=== PATIENT | male | born 1935 | race Caucasian/White ===

== ENCOUNTER 2018-07-30 08:19 | Day surgery (SDC) | payer OTHER, MEDICARE ==
[2018-07-30] MEDS ORDERED: LIDOCAINE 2% MPF 5 ML VIAL ONE ×2 (10:53→11:37)
[2018-07-30] MEDS ORDERED: TETRACAINE HCL 0.5% 2ML OPTH ONE (10:54)
[2018-07-30] MEDS ORDERED: NA CHLORIDE 0.9% 500 ML ONE (10:54)
[2018-07-30] MEDS ORDERED: BUPIVACAINE 0.25% PF 10 ML VIAL ONE (10:54)
[2018-07-30] MEDS ORDERED: NS 0.9% VIAL 10 ML ONE (11:06)
[2018-07-30] MEDS: CYCLOPENTOLATE 1% OPTH 2 ML ONE ×3 (11:15→11:25)
[2018-07-30] MEDS ORDERED: PHENYLEPHRINE 10% OPTH 5ML ONE (11:35)
[2018-07-30] MEDS ORDERED: PROPOFOL 200 MG/20 ML VIAL IV ONE (11:37)
[2018-07-30] MEDS: BALANCED SALT IRRIG PLAIN 500 ML BTL IRR ONE ×2 (12:01→12:06)
[2018-07-30] MEDS: EPINEPHRINE/PF 1 MG/ML AMP ONE ×2 (12:02→12:06)
[2018-07-30] MEDS: DUOVISC 1 KIT OPTH ONE ×2 (12:02→12:14)
[2018-07-30] MEDS: MOXIFLOXACIN HCL 10 DROPS/ML **OR USE OPTH ONE ×2 (12:14→12:30)
--- NOTE | 2018-07-30 12:38 | P.BOP ---
Preoperative diagnosis: Nuclear sclerotic cataract and regular astigmatism OD Postoperative diagnosis: Same Primary procedure: Phacoemulsification with Toric IOL OD Estimated blood loss: None Anesthesia: Local (Subtenon's infusion with anesthesia for cataract surgery) Complications: None Implants: [id number] +20.5 @ 173 Transferred to: Other (Day surgery) Condition: Good
[2018-07-30 13:27] VITALS: BP 157/88; TEMP 98.4; O2SAT 96
--- NOTE | 2018-07-30 22:16 | OP ---
Surgeon: Laura Scott MD Anesthesiologist: Anita Vasquez CRNA and Akash Alfaro MD. Preoperative Diagnoses: Nuclear sclerotic cataract and regular astigmatism, right eye. Operation Performed: Phacoemulsification with toric intraocular lens implant, right eye. Anesthesia: Per cataract surgery. Complications: None. Description Of Procedure: In day surgery, the patient was prepped with Betadine and draped. A conju nctival incision was made in the inferior nasal quadrant with Ele scissors. A sub-Tenon block c onsisting of a 1:1 mixture of 2% Xylocaine and 0.25% bupivacaine was placed through the conjunctival incision with a blunt cannula. A Honan balloon was placed over the eye and the patient was transferr ed to the operating room. In the operating room the patient was prepped and draped in the usual sterile fashion for ophthalmic surgery. A lid speculum was placed in the right eye. Two paracentesis sites were made superiorly an d inferiorly in the limbal cornea. Viscoat was placed in the anterior chamber and a crescent blade w as used to make a corneal groove and tunnel, and a keratome was used to enter the anterior chamber. Provisc was placed in the anterior chamber and a 360 degree capsulotomy was performed with a cystitom e. The lens was hydrodissected with BSS and rotated freely. The lens was removed with a stop and ch op technique. 15.27 phaco CDE was used to remove the lens. Residual cortex was removed with the irr igation and aspiration. Provisc was placed in the capsular bag. A JNH169 +20.5 at [address] was [address] ed in the capsular bag without complications. Irrigation and aspiration was used to remove residual viscoelastic. The paracentesis sites were hydrated with BSS. The wound and paracentesis sites were inspected and found to be watertight. Vigamox 0.07 cc was placed intracamerally at the end of the pr ocedure. The eye was irrigated with balanced salt solution. The eye was patched with a soft cotton patch and York metal shield. The patient was returned to day surgery in good condition. Comments: Discharge Instructions: Mr. Velasquez is discharged to home in good condition. He is to follow up with Dr. Scott today at 3 and in the morning. ANDREA/NICHOL Voice ID: [id number] Report ID: [id number]
== END 2018-07-30 13:13 | disposition home or self-care (01) ==
LOC: OR 08:19
PROVIDERS: ATTEND Ophthalmology Retina Specialist
PROC: 08RJ3JZ Replacement of Right Lens with Synthetic Substitute, Percutaneous Approach (ICD-10-PCS; principal; 2018-07-30 10:45)
DX: H25.11 Age-related nuclear cataract, right eye (principal); H52.221 Regular astigmatism, right eye; H40.10X0 Unspecified open-angle glaucoma, stage unspecified; I10 Essential (primary) hypertension; I25.10 Atherosclerotic heart disease of native coronary artery without angina pectoris; E78.5 Hyperlipidemia, unspecified; I25.2 Old myocardial infarction; Z79.82 Long term (current) use of aspirin; Z88.0 Allergy status to penicillin; Z85.51 Personal history of malignant neoplasm of bladder; Z85.038 Personal history of other malignant neoplasm of large intestine; Z95.5 Presence of coronary angioplasty implant and graft
CPT/HCPCS: 66984; J0171; J2704; V2787

== ENCOUNTER 2022-11-04 20:42 | Inpatient (IN) | payer OTHER, MEDICARE ==
--- OUTSIDE RECORDS SUMMARY | 2022-11-04 20:45 | XMS REPORT | Continuity of Care Document ---
:1935 Author Organization [facility] t Address [address] [place] [address] [place] [id number] Care Team Providers Name Role Phone Singer CALVOSourav Attending Clinician Payers Payer Name Policy Type Policy Number Effective Date Expiration Date S ource Problems This patient has no known problems. Allergies, Adverse Reactions, Alerts Allergy Allergy Status Severity Reaction(s) Onset Inactive Treating Comm ents Source Name Type Date Date Clinician Penicill Propensi Active Rash Univer s ins ty to 01-30 ity of adverse 00:00: [place] reaction 00 Medical Branch PENICILL Drug Active Rash Univers INS Class 7-24 ity of 00:00: [place] 00 [facility] [place] Social History Social Habit Start Date Stop Date Quantity Comments Source Exposure to Not sure [facility] SARS-CoV-2 (event) Medica l Branch Sex Assigned At [birth year] [facility] 00:00:00 00:00:00 [facility] [place] Smoking Status Start Date Stop Date Source Unknown if ever smoked [facility] Medications This patient has no known medications. Vital Signs Vital Name Observation Time Observation Value Comments Source Systolic blood 2021-01-30 21:00:00 114 mm[Hg] [facility] Diastolic blood 2021-01-30 21:00:00 74 mm[Hg] Unive rsity [facility] [place] [facility] Heart rate 2021-01-30 21:00:00 63 /min [facility] Respiratory rate 2021-01-30 21:00:00 17 /min [facility] Oxygen saturation in 2021-01-30 21:00:00 97 /min [facility] Arterial blood by [facility] Pulse oximetry Branch Body temperature 2021-01-30 19:13:00 36.61 Diana [facility] Body weight 2021-01-30 19:13:00 73.483 kg Universi [facility] Procedures Procedure Date / Time Performed Performing Clinician Cosme e TROPONIN I 2021-01-30 20:02:00 Singer [facility] o [facility] [place] BASIC METABOLIC PANEL 2021-01-30 20:02:00 Sourav Daigle [facility] (NA, K, CL, CO2, [facility] Branch GLUCOSE, BUN, CREATININE, CA) CBC WITHOUT DIFF 2021-01-30 20:02:00 Singer [facility] COVID-19 (ID NOW 2021-01-30 20:02:00 Daigle, [facility] RAPID TESTING) [facility] NOTICE OF PRIVACY 2021-01-30 19:09:01 Doctor Unassigned, No [facility] PRACTICES Name [facility] CONSENT/REFUSAL FOR 2021-01-30 19:03:10 Doctor Unassigned, No [facility] DIAGNOSIS AND Name [facility] TREATMENT Encounters Start End Encounter Admission Attending Care Care Encounter Source Date/Time Date/Time Type Type Clinicians Facility Department ID 2021-01-30 2021-01-30 [facility] [id number] Univers 14:15:00 16:13:00 Sourav [place] [id number] [facility] [id number] [facility] [id number] [facility] 084 Branch 2021-01-30 2021-01-30 Emergency X [facility] ERT [id number] Univers 14:03:00 14:03:00 [facility] Results Test Description Test Time Test Comments Results Result Comments Source TROPONIN I 2021-01-30 20:40:16 Test Item Value Reference Range Interpretation Comme nts TROPONIN I (test code = 0.007 ng/mL See_Comment [Au tomated message] The [id number]) system which ge nerated this result tra nsmitted reference range : <=0.034. The reference r flakito was not used to int erpret this result as normal/abnormal . PER (test code = PER) Reference (Normal) Range (defined by the 99th percentile reference limit): <= 0.034 ng/mL Note: Cardiac troponin begins to rise 3-4 hours after the onset of ischemia. Repeat in 4-6 hours if the sample was drawn within 3-4 hours of the onset of the symptom and found normal. Diagnosis of myocardial injury is made with acute changes in cTn concentrations with at least one serial sample above the 99th percentile upper reference limit (URL), taken together with the patient's clinical presentation. Biotin has been reported to cause a negative bias, interpret results relative to patient's use of biotin. Lab Interpretation Normal (test code = 61402-1) [facility]2021-01-30 20:29:56 Test Item Value Reference Range Interpretation Comments SARS-CoV-2 Rapid ID NOW Not Detected Not Detected (test code = 12132-6) PER (test code = PER) ID NOW COVID-19 Assay is an isothermal nucleic acid amplification test intended for the qualitative detection of nucleic acid from SARS-CoV-2 viral RNA in nasopharyngeal (LAB ASST) specimens. It is used under Emergency Use Authorization (EUA) by FDA. The limit of detection (LOD) of the assay is 125 Genome Equivalents/mL. A positive result is indicative of the presence of SARS-CoV-2 RNA. ?Clinical correlation with patient history and other diagnostic information is necessary to determine patient infection status. A negative (Not Detected) result does not preclude SARS-CoV-2 infection. In patients with clinical symptoms and other tests that are consistent with SARS-CoV-2 infection, negative results should be treated as presumptive negative and a new specimen should be tested with alternative PCR molecular test. Invalid: Please collect a new specimen for repeat patient testing if clinically indicated. Lab Interpretation Normal (test code = 20139-2) [facility] (NA, K, CL, CO2, GLUCOSE, BUN, CREATININE, CA)2021-01-30 20:28:14 Test Item Value Reference Range Interpretation Comments NA (test code = 135 mmol/L 135-145 3937036120) K (test code = 5.1 mmol/L 3.5-5.0 H 5773416137) CL (test code = 106 mmol/L 98-108 6259731965) CO2 TOTAL (test code = 24 mmol/L 23-31 1424076339) AGAP (test code = 2-16 8037815402) BUN (test code = 25 mg/dL 7-23 H 5038855124) GLUCOSE (test code = 98 mg/dL 70-110 1712080354) CREATININE (test code = 1.11 mg/dL 0.60-1.25 6263584059) CALCIUM (test code = 9.1 mg/dL 8.6-10.6 5596056992) eGFR (test code = mL/min/1.73m2 0070839221) PER (test code = PER) Association of Glomerular Filtration Rate (GFR) and Staging of Kidney Disease* + --+ --+ ------+| GFR (mL/min/1.73 m2) ?| With Kidney Damage ?| ?Without Kidney Damage+ --------+ --------+ +| ?>90 ?| ?Stage one ?| ? Normal ?+ ---+ ---+ -------+| ?60-89 ?| ?Stage two ?| ? Decreased GFR ? + --+ --+ ------+| ?30-59 ?| ?Stage three ?| ? Stage three ? + --+ --+ ------+| ?15-29 ?| ?Stage four ? | ? Stage four ?+ ---+ ---+ -------+| ?<15 (or dialysis) ? ?| ?Stage five ? | ? Stage five ?+ ---+ ---+ -------+ *Each stage assumes the associated GFR level has been in effect for at least three months. ?Stages 1 to 5, with or without kidney disease, indicate chronic kidney disease. Notes: Determination of stages one and two (with eGFR >59mL/min/1.73 m2) requires estimation of kidney damage for at least three months as defined by structural or functional abnormalities of the kidney, manifested by either:Pathological abnormalities or Markers of kidney damage (including abnormalities in the composition of the blood or urine or abnormalities in imaging tests). Lab Interpretation Abnormal (test code = 13685-3) [facility] [id number] 20:14:57 Test Item Value Reference Range Interpretation Comments WBC (test code = 6690-2) See_Comment [A utomated message] The system [employer] generated this result transmit eugenia reference range : 4.20 - 10.70 10*3/?L. The reference range was not used to interpret this result as normal/abnormal . RBC (test code = 789-8) See_Comment L [Au tomated message] The system [employer] generated this result transmit eugenia reference range : 4.26 - 5.52 10* 6/?L. The reference r flakito was not used to interpret this result as normal/abnormal . HGB (test code = 718-7) 12.8 g/dL 12.2-16.4 HCT (test code = 4544-3) 38.7 % 38.4-49.3 MCH (test code = 785-6) 31.5 pg 26.1-32.7 MCV (test code = 787-2) 95.3 fL 81.7-95.6 MCHC (test code = 786-4) 33.1 g/dL 31.2-35.0 PLT (test code = 777-3) See_Comment [Au tomated message] The system [employer] generated this result transmit eugenia reference range : 150 - 328 10*3/?L. The reference range was not used to interpret this result as normal/abnormal . MPV (test code = 9.5 fL 9.8-13.0 L 13658-6) RDW-CV (test code = 13.2 % 12.1-15.4 788-0) RDW-SD (test code = 45.9 fL 38.5-51.6 49187-1) NRBC x10^3 (test code = <0.01 See_Comment [Au tomated message] [id number]) The system [employer] generated this result transmit eugenia reference range : 10*3/?L. The reference range was not used to interpret this result as normal/abnormal . NRBC/100 WBC (test code See_Comment [Au tomated message] = [id number]) The system [facility] generated this result transmit eugenia reference range : 0.0 - 10.0 /100 WBC s. The reference r flakito was not used to interpret this result as normal/abnormal . IPF % (test code = 5073901807) Lab Interpretation (test Abnormal code = 74237-0) [facility]"
[2022-11-04 21:30] LABS: Protime INR 1.13
[2022-11-04 21:42] LABS: Absolute Lymphocytes (CBC) 0.4 K/uL (0.7-4.9); Bilirubin Total 0.9 mg/dL (0.2-1.0); Hematocrit 36.2 % (39.6-49.0); Lymphocytes % 3.4 % (15.3-44.8); MPV 6.6 fL (7.6-11.3); Potassium 3.8 mEq/L (3.5-5.1); Protein, Total 7.6 g/dL (6.4-8.2); RBC Red Blood Cell Count 3.98 M/uL (4.33-5.43)
[2022-11-04] MEDS ORDERED: METOCLOPRAMIDE 10 MG/2mL INJ ONE (21:56)
[2022-11-04] MEDS ORDERED: IBUPROFEN 400 MG TAB ONE (21:57)
[2022-11-04] MEDS ORDERED: ONDANSETRON 4 MG/2 ML VIAL ONE (21:57)
[2022-11-04] MEDS ORDERED: VANCOMYCIN 1 GM/VIAL ONE (21:57)
[2022-11-04] MEDS ORDERED: ACETAMINOPHEN 500 MG TAB ONE (21:57)
[2022-11-04] MEDS ORDERED: PIPERACIL/TAZO 3.375 GM VIAL IV ONE (21:58)
[2022-11-04] MEDS ORDERED: NA CHLORIDE 0.9% 2,000 ML ONE (21:58)
[2022-11-04] MEDS ORDERED: NA CHLORIDE 0.9% 100 ML ONE (21:58)
[2022-11-04] MEDS ORDERED: NA CHLORIDE 0.9% 250 ML ONE (21:58)
[2022-11-04 22:02] LABS: Specific Gravity 1.012 (1.005-1.030); Urine Bacteria 20-50 /HPF (<20); Urine Bilirubin NEGATIVE (Negative); Urine Blood 2+ (Negative); Urine Clarity Turbid (Clear); Urine Color Light-Yellow (Yellow); Urine Glucose NEGATIVE (Negative); Urine Mucus 1+ /HPF (None Seen); Urine Protein TRACE (Negative); Urine RBC 21-50 /HPF (None Seen); Urine Urobilinogen Normal (Normal); Urine WBC Clump Occasional /HPF (None Seen)
[2022-11-04 22:09] LABS: White Blood Cell Scan OK (OK)
[2022-11-04 22:10] LABS: Blood Morphology Comment NOT SEEN (NOT SEEN); Platelet Estimate ADEQ
--- NOTE | 2022-11-04 22:37 | RAD REPORT ---
EXAM DESCRIPTION: CT - Head Brain Wo Cont - 11/04/2022 10:23 pm CLINICAL HISTORY: Alteration of awareness/confusion COMPARISON: None TECHNIQUE: Computed axial tomography of the head was obtained. IV contrast was not requested. All CT scans are performed using dose optimization technique as appropriate and may include automated exposure control or mA/KV adjustment according to patient size. FINDINGS: An intracranial bleed is not seen The ventricles are normal in caliber No extra-axial fluid collection is noted. Mild low-density areas within periventricular, deep and subcortical white matter likely represent isc hemic changes secondary to small vessel disease. Linear calcifications are present within the cerebrum bilaterally. Linear calcification is seen withi n the right cerebellum. Basal ganglia calcifications are benign Fluid within the sinuses/ mastoids is not seen. IMPRESSION: Linear calcifications within the brain bilaterally may be related to a metabolic disturb ance such as hypothyroidism. No acute intracranial abnormality seen If patient's symptoms persist MRI of the brain would be recommended
--- NOTE | 2022-11-04 22:44 | RAD REPORT ---
EXAM DESCRIPTION: CT - Chest Abd Pelvis Wo Con - 11/04/2022 10:23 pm CLINICAL HISTORY: Chest and abdominal pain COMPARISON: 2012 TECHNIQUE: Computed axial tomography of the chest, abdomen and pelvis was obtained. Oral contrast wa s given. IV contrast was not requested. All CT scans are performed using dose optimization technique as appropriate and may include automated exposure control or mA/KV adjustment according to patient size. FINDINGS: The evaluation of mediastinum, juanita, vessels and solid organs is limited secondary to the lack of IV contrast administration The lungs are clear No mediastinal or hilar lymphadenopathy is seen. A pleural effusion is not present. A pericardial effusion is not seen. The liver, spleen, pancreas, adrenals appear grossly normal. Bilateral renal cysts. Right colectomy. Moderate amount of stool within the left colon Vera catheter within the bladder. Mild bladder wall thickening. Prostate gland mildly enlarged Right inguinal hernia repair There is no evidence of diverticulitis. IMPRESSION: Mild bladder wall thickening may be secondary to post treatment change, inflammation or chronic outlet obstruction. Moderate amount of stool within the left colon
--- NOTE | 2022-11-04 23:17 | EDPHYS ---
Physician Documentation [facility] Name: Marvin Velasquez Age: 87 yrs Sex: Male : 1935 Arrival Date: 11/04/2022 Time: 20:42 Bed 20 Private MD: ED Physician Truong Pickard HPI: 11/04 21:02 This 87 yrs old Male presents to ER via EMS with complaints of fever, sp4 lethargy. 21:02 87-year-old male presents with EMS for acute onset of fever and lethargy of unknown sp4 duration.. 22:56 EMS reports that patient was found on his couch by his family lethargic and confused. sp4 Patient has history of myocardial infarction with occlusion of LAD and history of LAD stent also history of coronary artery disease hyperlipidemia, and glaucoma.. On arrival patient appears confused and febrile, general diffuse physical deconditioning, not able to provide any history or review of systems.. 22:56 Family states that patient was seeing a heart off last time at 4 PM and was normal but sp4 then patient had disappeared and family had to break down the door in his house to find him in a position curled up on his couch feverish. Patient was reportedly at the store today and was feeling unwell. Patient reported to the family that he has had frequent urination throughout the day. No additional history available. Historical: - Allergies: 21:01 No Known Allergies; ha1 - Home Meds: 21:01 atorvastatin oral [Active]; Metoprolol Tartrate Oral [Active]; losartan oral [Active]; ha1 - PMHx: 21:01 Myocardial infarction; ha1 - Immunization history:: Adult Immunizations up to date. - Social history:: Smoking status: Patient denies any tobacco usage or history of. - Family history:: not pertinent. ROS: 22:56 Constitutional: Negative for chills, and weight loss, positive for fever, frequent sp4 urination, lethargy, generalized weakness. Patient not able to supply additional review of system 22:56 Unable to obtain ROS due to altered mental status. Exam: 22:37 ECG was reviewed by the Attending Physician. EKG time 2123, EKG reveals sinus sp4 tachycardia at rate of 121, no ST elevations, no ST depressions, no acute ectopy 22:56 Constitutional: This is a well developed, patient who is awake,. Patient is sp4 ill-appearing, toxic-appearing, febrile, but not hypotensive. Diffuse physical deconditioning and cachexia present. Thin appearing male elderly and frail. Incontinent of urine Head/Face: Normocephalic, atraumatic. Eyes: Pupils equal round and reactive to light, extra-ocular motions intact. Lids and lashes normal. Conjunctiva and sclera are not injected. Cornea within normal limits. Periorbital areas with no swelling, redness, or edema. ENT: Nares patent. No nasal discharge, no septal abnormalities noted. Tympanic membranes are normal and external auditory canals are clear. Poor dentition, dry mucous membranes Neck: Trachea midline, no thyromegaly or masses palpated, and no cervical lymphadenopathy. Supple, full range of motion without nuchal rigidity, or vertebral point tenderness. No Meningismus. Chest/axilla: Normal chest wall appearance and motion. Nontender with no deformity. No lesions are appreciated. Cardiovascular: Regular rate and rhythm with a normal S1 and S2. No gallops, murmurs, or rubs. Normal PMI, no JVD. No pulse deficits. Respiratory: Lungs have equal breath sounds bilaterally, clear to auscultation and percussion. No rales, rhonchi or wheezes noted. No increased work of breathing, no retractions or nasal flaring. Abdomen/GI: Soft, non-tender, with normal bowel sounds. No distension or tympany. No guarding or rebound. No evidence of tenderness throughout. Back: No spinal tenderness. No costovertebral tenderness. Male : Normal genitalia with no discharge or lesions. Skin: Warm, dry with normal turgor. Normal color with no rashes, no lesions, and no evidence of cellulitis. MS/ Extremity: Pulses equal, no cyanosis. Neurovascular intact. Full, normal range of motion. Neuro: Awake GCS 13 oriented to person, . Cranial nerves II-XII grossly intact. Motor strength 5/5 in all extremities. Sensory grossly intact. Gen weakness Psych: Awake, with orientation to person. 23:32 Repeat EKG at 2322 reveals normal sinus rhythm at a rate of 97, no ST elevation, early sp4 repolarization changes in leads II, III, aVF, otherwise normal EKG Vital Signs: 20:56 BP 107 / 69; Pulse 128; Resp 20 S; Temp 102.9(O); Pulse Ox 97% on R/A; Weight 63.5 kg; ha1 Height 6 ft. 0 in. ; 22:30 BP 100 / 58; Pulse 101; Resp 14 S; Pulse Ox 100% on R/A; ha1 23:07 Temp 98.1; ha1 23:32 BP 100 / 65; Pulse 94; Resp 18; Pulse Ox 100% on R/A; ha1 11/05 00:22 BP 90 / 56; Pulse 95; Resp 15 S; Pulse Ox 97% on R/A; ha1 00:50 BP 77 / 48; Pulse 88; Resp 18 S; Pulse Ox 99% on R/A; ha1 01:30 BP 97 / 56; Pulse 84; Resp 14 S; Pulse Ox 100% on R/A; ha1 02:30 BP 94 / 51; Pulse 83; Resp 18 S; Pulse Ox 100% on R/A; ha1 03:17 BP 98 / 64; Pulse 81; Resp 15 S; Pulse Ox 99% on R/A; ha1 04:00 BP 103 / 62; Pulse 82; Resp 18 S; Pulse Ox 99% on R/A; ha1 11/04 20:56 Body Mass Index 18.99 (63.50 kg, 182.88 cm) [facility] Procedures: 03:16 Central Line: the site was prepped with in sterile fashion, Hibiclens prep, a triple sp4 lumen catheter was inserted, in the right internal jugular vein, in 1 attempts. placement was verified, by CXR, by blood return, the site was dressed with Tegaderm, using sterile technique, the patient tolerated the procedure, well, Right internal jugular triple-lumen central line was placed with ultrasound guidance for persistent hypotension and septic shock. MDM: 11/04 21:02 Patient medically screened. sp4 22:56 Differential Diagnosis altered mental status, sepsis, flu. Data reviewed: vital signs, sp4 nurses notes, EMS record, old medical records, lab test result(s), amylase and lipase, cardiac enzymes, CBC, electrolytes, Flu: hepatic panel, urinalysis, EKG, radiologic studies, CT scan. Consideration of Admission/Observation Patient was admitted/placed on observation. Escalation of care including admission/observation considered. ED course: 87-year-old male with history of coronary artery disease presents with fever, lethargy, dehydration, signs of sepsis. Patient's blood pressure is stable 100/65 and is normal for his size. Patient appears to have moderate to severe dehydration, incontinence of urine, and physical deconditioning. Blood work revealed neutrophilic leukocytosis, mild hyponatremia sodium 132, AST 14, lactic acid 1.2, urine positive for leukocyte esterase, positive for white blood cells, positive for bacteria, positive for nitrites, indicative of pyelonephritis CT chest abdomen and pelvis revealed urinary bladder wall thickening moderate amount of stool in the colon. CT head revealed no acute intracranial abnormality, calcifications bilateral brain related to hypothyroidism or some other metabolic disturbance. At this time parents warrants admission for management of pyelonephritis with IV Zosyn or some other acceptable antibiotic. Patient has improved in mentation after IV hydration and fever control in ER.. 11/04 21:03 Order name: Blood Culture Adult (2) [facility] 11/04 21:03 Order name: CBC with Diff; Complete Time: 22:37 [facility] 11/04 21:03 Order name: CMP; Complete Time: 00:44 [facility] 11/04 21:03 Order name: Lactate w/ 2H reflex if indic.; Complete Time: 22:37 [facility] 11/04 21:03 Order name: Protime (+inr); Complete Time: 22:37 [facility] 11/04 21:03 Order name: Ptt, Activated; Complete Time: 22:37 [facility] 11/04 21:03 Order name: Urinalysis w/ reflexes; Complete Time: 22:37 [facility] 11/04 22:08 Order name: Urine Culture [facility] 11/04 22:10 Order name: CBC Smear Scan; Complete Time: 22:37 [facility] 11/05 00:08 Order name: SARS-COV-2 RT PCR; Complete Time: 02:01 [facility] 11/05 00:09 Order name: Influenza Screen (A ; Complete Time: 02:01 [facility] 11/05 00:13 Order name: Thyroid Stimulating Hormone; Complete Time: 00:44 [facility] 11/04 21:08 Order name: CT Chest Abdomen Pelvis W/O Contrast; Complete Time: 22:53 [facility] 11/04 21:08 Order name: CT Head Brain wo Cont; Complete Time: 22:53 [facility] 11/05 02:17 Order name: CXR XRAY 11/04 21:03 Order name: EKG; Complete Time: 21:04 sp4 11/04 21:03 Order name: Accucheck; Complete Time: 22:13 sp4 11/04 21:03 Order name: Cardiac monitoring; Complete Time: 21:08 sp4 11/04 21:03 Order name: Cath; Complete Time: 21:46 sp4 11/04 21:03 Order name: EKG - Nurse/Tech; Complete Time: 21:46 4 11/04 21:03 Order name: IV Saline Lock - Large Bore; Complete Time: 21:18 sp4 11/04 21:03 Order name: Labs collected and sent; Complete Time: 21:18 sp4 11/04 21:03 Order name: O2 Per Protocol; Complete Time: 21:18 sp4 11/04 21:03 Order name: O2 Sat Monitoring; Complete Time: 21:18 sp4 11/04 21:03 Order name: Vital Signs; Complete Time: 21:18 sp4 11/04 22:38 Order name: EKG - Nurse/Tech; Complete Time: 23:30 sp4 EC:37 Rate is 121 beats/min. Rhythm is regular. QRS [place] is Normal. [place] interval is normal. sp4 QRS interval is normal. T waves are Normal. No ST changes noted. Clinical impression: No evidence of ischemia. Interpreted by me. Administered Medications: 21:35 Drug: Acetaminophen PO 1000 mg Route: PO; ha1 21:35 Drug: Ibuprofen PO 800 mg Route: PO; ha1 21:35 Drug: NS 0.9% IV (30 ml/kg) 30 ml/kg Route: IV; Rate: bolus; Site: right antecubital; ha1 21:55 Drug: Ondansetron IVP 4 mg Route: IVP; Site: right antecubital; ha1 22:20 Follow up: Response: No adverse reaction ha1 22:00 Drug: metoCLOPramide IVP 10 mg Route: IVP; Site: right antecubital; ha1 22:30 Follow up: Response: No adverse reaction ha1 22:30 Drug: Piperacillin-Tazobactam IVPB 3.375 grams Route: IVPB; Infused Over: 60 mins; ha1 Site: right antecubital; 23:00 Follow up: Response: No adverse reaction; IV Status: Completed infusion; IV Intake: ha1 100ml 23:15 Drug: vancoMYCIN IVPB 1 grams Route: IVPB; Infused Over: 2 hrs; Site: right antecubital;ha1 23:45 Follow up: Response: No adverse reaction; IV Status: Completed infusion; IV Intake: ha1 250ml 11/05 00:55 Drug: NS 0.9% IV 1000 ml Route: IV; Rate: 100 ml/hr; Site: right antecubital; ha1 04:26 Follow up: Response: No adverse reaction; IV Status: Infusion continued; IV Intake: ha1 800ml 00:56 Drug: Albumin IVPB 50 grams Volume: 100 ml; Route: IVPB; Site: right antecubital; ha1 02:10 Follow up: Response: No adverse reaction; IV Status: Completed infusion; IV Intake: ha1 100ml 01:24 Drug: NS 0.9% IV 500 ml Route: IV; Rate: bolus; Site: right antecubital; ha1 04:24 Follow up: Response: No adverse reaction; IV Status: Completed infusion; IV Intake: ha1 500ml Disposition Summary: 11/04/22 23:17 Hospitalization Ordered Hospitalization Status: Inpatient Admission sp4 Provider: Wagner Serrano sp4 Condition: Fair sp4 Problem: new sp4 Symptoms: have improved sp4 Bed/Room Type: Standard sp4 Location: Intensive Care Unit(11/05/22 01:13) cg Room Assignment: 5-(11/05/22 01:13) cg Diagnosis - Pyelonephritis acute sp4 - Acute febrile illness, acute pyelonephritis, acute sepsis sp4 - Severe sepsis with septic shock sp4 Forms: - Medication Reconciliation Form sp4 - SBAR form sp4 Critical care time excluding procedures: 11/04 22:56 Critical care time: Bedside Care: 36 minutes, Consultation: 10 minutes, Family sp4 Intervention: 12 minutes. Total time: 58 minutes Signatures: Dispatcher [employer] Daktoa Clement, PERLA DODDP-Katie Foy RN RN Maria Ines Dexter RN RN ha1 Truong Pickard MD MD sp4 Corrections: (The following items were deleted from the chart) 11/05 00:08 11/04 21:06 COVID-19/FLU A+B+MOL.LAB.BRZ ordered. EDMS ZAINABMS 11/05 00:13 00:01 THYROID STIMULAT HORMONE+C.LAB.MARIANZ ordered. EDMS EDMS 01:11/04 23:17 Telemetry/MedSurg (Inpatient) 4 11/05 01:13 11/04 23:17 sp4 11/05 03:17 11/04 23:17 Severe sepsis without septic shock [facility]
--- NOTE | 2022-11-04 23:17 | ER ---
Nurse's Notes [facility] Name: Marvin Velasquez Age: 87 yrs Sex: Male : 1935 Arrival Date: 11/04/2022 Time: 20:42 Bed 20 Private MD: Diagnosis: Pyelonephritis acute;Acute febrile illness, acute pyelonephritis, acute sepsis;Severe sepsis with septic shock Presentation: 11/04 20:55 Coronavirus screen: Vaccine status: Patient reports receiving the 2nd dose of the covid ha1 vaccine. 20:56 Chief complaint: EMS states: 87 year old male, family called because he has been ha1 complaining of problems with urination, and today they noticed his mental status has changed. he was found sitting in the couch without interest on talking or moving. Ebola Screen: No symptoms or risks identified at this time. Initial Sepsis Screen: Does the patient meet any 2 criteria? Yes Does the patient have a suspected source of infection? No. Patient's initial sepsis screen is negative. Risk Assessment: Do you want to hurt yourself or someone else? Patient reports no desire to harm self or others. Onset of symptoms was November 04, 2022. 20:56 Method Of Arrival: EMS: [facility] ha1 20:56 Acuity: EYAL 3 ha1 Triage Assessment: 20:55 General: Appears ill, Behavior is calm, cooperative. Pain: Denies pain. EENT: No signs ha1 and/or symptoms were reported regarding the EENT system. Neuro: Level of Consciousness is awake, alert, obeys commands, Oriented to person, situation. Cardiovascular: Capillary refill < 3 seconds Patient's skin is warm and dry. Respiratory: Airway is patent Respiratory effort is even, unlabored, Respiratory pattern is regular, symmetrical. GI: No signs and/or symptoms were reported involving the gastrointestinal system. Abdomen is flat, non-distended, Bowel sounds present X 4 quads. : Parent/caregiver report the patient having urinary frequency. Derm: Skin is fragile, Skin is moist, Skin is normal. Musculoskeletal: Circulation, motion, and sensation intact. Range of motion: intact in all extremities. Historical: - Allergies: 21:01 No Known Allergies; ha1 - Home Meds: 21:01 atorvastatin oral [Active]; Metoprolol Tartrate Oral [Active]; losartan oral [Active]; ha1 - PMHx: 21:01 Myocardial infarction; ha1 - Immunization history:: Adult Immunizations up to date. - Social history:: Smoking status: Patient denies any tobacco usage or history of. - Family history:: not pertinent. Screenin:55 [facility] ED Fall Risk Assessment (Adult) History of falling in the last 3 months, ha1 including since admission No falls in past 3 months (0 pts) Confusion or Disorientation Yes (5 pts) Intoxicated or Sedated No (0 pts) Impaired Gait No (0 pts) Mobility Assist Device Used Yes (1 pt) Altered Elimination Yes (1 pt) Score/Fall Risk Level 3 or more points = High Risk Oriented to surroundings, Maintained a safe environment, Educated pt \T\ family on fall prevention, incl call for assistance when getting out of bed, Assessed \T\ reinforced patient's understanding of fall precautions, Hourly rounding (assess needs \T\ fall precautionary measures) done. 21:06 Abuse screen: Denies threats or abuse. Denies injuries from another. Nutritional ha1 screening: No deficits noted. Tuberculosis screening: No symptoms or risk factors identified. Assessment: 20:55 Reassessment: see triage assessment. ha1 21:30 Reassessment: Patient and/or family updated on plan of care and expected duration. Pain ha1 level reassessed. Patient is alert, oriented x 3, equal unlabored respirations, skin warm/dry/pink. 22:30 Reassessment: Patient and/or family updated on plan of care and expected duration. Pain ha1 level reassessed. Patient is alert, oriented x 3, equal unlabored respirations, skin warm/dry/pink. 23:30 Reassessment: Patient and/or family updated on plan of care and expected duration. Pain ha1 level reassessed. family members in the room. 11/05 00:50 Reassessment: notified care provider of low blood pressure. ha1 01:30 Reassessment: Patient and/or family updated on plan of care and expected duration. Pain ha1 level reassessed. Patient is alert, oriented x 3, equal unlabored respirations, skin warm/dry/pink. daughter at bedside. Patient denies pain at this time. 02:30 Reassessment: Patient is alert, oriented x 3, equal unlabored respirations, skin ha1 warm/dry/pink. Nurse practitioner Dakota in the room putting a central line. 03:00 Reassessment: Patient and/or family updated on plan of care and expected duration. Pain ha1 level reassessed. awaiting on X-ray. to verify central line placement. 04:00 Reassessment: Patient and/or family updated on plan of care and expected duration. Pain ha1 level reassessed. Patient is alert, oriented x 3, equal unlabored respirations, skin warm/dry/pink. Vital Signs: 11/04 20:56 BP 107 / 69; Pulse 128; Resp 20 S; Temp 102.9(O); Pulse Ox 97% on R/A; Weight 63.5 kg; ha1 Height 6 ft. 0 in. ; 22:30 BP 100 / 58; Pulse 101; Resp 14 S; Pulse Ox 100% on R/A; ha1 23:07 Temp 98.1; ha1 23:32 BP 100 / 65; Pulse 94; Resp 18; Pulse Ox 100% on R/A; ha1 11/05 00:22 BP 90 / 56; Pulse 95; Resp 15 S; Pulse Ox 97% on R/A; ha1 00:50 BP 77 / 48; Pulse 88; Resp 18 S; Pulse Ox 99% on R/A; ha1 01:30 BP 97 / 56; Pulse 84; Resp 14 S; Pulse Ox 100% on R/A; ha1 02:30 BP 94 / 51; Pulse 83; Resp 18 S; Pulse Ox 100% on R/A; ha1 03:17 BP 98 / 64; Pulse 81; Resp 15 S; Pulse Ox 99% on R/A; ha1 04:00 BP 103 / 62; Pulse 82; Resp 18 S; Pulse Ox 99% on R/A; ha1 11/04 20:56 Body Mass Index 18.99 (63.50 kg, 182.88 cm) ha1 ED Course: 11/04 20:55 Patient arrived in ED. ha1 20:55 Patient has correct armband on for positive identification. Placed in gown. Bed in low ha1 position. Call light in reach. Side rails up X2. Adult w/ patient. 20:56 Maria Ines Dexter RN is Primary Nurse. ha1 21:00 Truong Pickard MD is Attending Physician. sp4 21:01 Triage completed. ha1 21:14 First set of blood cultures drawn by me. mb9 21:18 Ptt, Activated Sent. mb9 21:18 Protime (+inr) Sent. mb9 21:18 CMP Sent. mb9 21:18 CBC with Diff Sent. mb9 21:18 Lactate w/ 2H reflex if indic. Sent. mb9 21:18 Inserted saline lock: 22 gauge in right antecubital area, using aseptic technique. mb9 21:18 Arm band placed on. mb9 21:30 Inserted saline lock: 20 gauge in left forearm, using aseptic technique. mb9 21:32 Second set of blood cultures drawn by me, EKG done, by ED staff, reviewed by Truong Pickard MD. 21:46 Blood Culture Adult (2) Sent. mb9 21:46 Urinalysis w/ reflexes Sent. mb9 21:47 Vera cath inserted, using sterile technique, 16 Fr., by me, balloon inflated, to mb9 gravity drainage, urine specimen collected. returned cloudy urine. Patient tolerated well. 22:13 Blood Culture Adult (2) Sent. ha1 22:25 CT Chest Abdomen Pelvis W/O Contrast In Process Unspecified. EDMS 22:25 CT Head Brain wo Cont In Process Unspecified. EDMS 23:16 Wagner Serrano MD is Hospitalizing Provider. sp4 11/05 04:21 No provider procedures requiring assistance completed. Patient admitted, IV remains in ha1 place. Administered Medications: 11/04 21:35 Drug: Acetaminophen PO 1000 mg Route: PO; ha1 21:35 Drug: Ibuprofen PO 800 mg Route: PO; ha1 21:35 Drug: NS 0.9% IV (30 ml/kg) 30 ml/kg Route: IV; Rate: bolus; Site: right antecubital; ha1 21:55 Drug: Ondansetron IVP 4 mg Route: IVP; Site: right antecubital; ha1 22:20 Follow up: Response: No adverse reaction ha1 22:00 Drug: metoCLOPramide IVP 10 mg Route: IVP; Site: right antecubital; ha1 22:30 Follow up: Response: No adverse reaction ha1 22:30 Drug: Piperacillin-Tazobactam IVPB 3.375 grams Route: IVPB; Infused Over: 60 mins; ha1 Site: right antecubital; 23:00 Follow up: Response: No adverse reaction; IV Status: Completed infusion; IV Intake: ha1 100ml 23:15 Drug: vancoMYCIN IVPB 1 grams Route: IVPB; Infused Over: 2 hrs; Site: right antecubital;ha1 23:45 Follow up: Response: No adverse reaction; IV Status: Completed infusion; IV Intake: ha1 250ml 11/05 00:55 Drug: NS 0.9% IV 1000 ml Route: IV; Rate: 100 ml/hr; Site: right antecubital; ha1 04:26 Follow up: Response: No adverse reaction; IV Status: Infusion continued; IV Intake: ha1 800ml 00:56 Drug: Albumin IVPB 50 grams Volume: 100 ml; Route: IVPB; Site: right antecubital; ha1 02:10 Follow up: Response: No adverse reaction; IV Status: Completed infusion; IV Intake: ha1 100ml 01:24 Drug: NS 0.9% IV 500 ml Route: IV; Rate: bolus; Site: right antecubital; ha1 04:24 Follow up: Response: No adverse reaction; IV Status: Completed infusion; IV Intake: ha1 500ml Medication: 04:22 VIS not applicable for this client. ha1 Intake: 11/04 23:00 IV: 100ml; Total: 100ml. ha1 23:45 IV: 250ml; Total: 350ml. ha1 11/05 02:10 IV: 100ml; Total: 450ml. ha1 04:24 IV: 500ml; Total: 950ml. ha1 04:26 IV: 800ml; Total: 1750ml. ha1 Outcome: 11/04 23:17 Decision to Hospitalize by Provider. sp4 11/05 04:21 Admitted to ICU accompanied by nurse, via stretcher, room 1, on monitor, with chart, ha1 Report called to CHERELLE Orellana Condition: stable 04:30 Patient left the ED. ha1 Signatures: Dispatcher [employer] EDMaria Ines Campo RN RN ha1 Kindra Penaloza RN RN Truong Mar MD MD sp4 Corrections: (The following items were deleted from the chart) 02:10 Response: No adverse reaction; IV Status: Completed infusion; IV Intake: 100ml ha1ha1
[2022-11-05 00:36] LABS: Thyroid Stimulating Hormone 1.33 uIU/mL (0.358-3.740)
[2022-11-05] MEDS ORDERED: ALBUMIN HUMAN 25% 200 ML IV ONE (00:44)
[2022-11-05] MEDS ORDERED: NA CHLORIDE 0.9% 1,000 ML ONE (00:51)
--- NOTE | 2022-11-05 01:20 | P.HP ---
Certification for Inpatient Patient admitted to: Inpatient With expected LOS: >2 Midnights Patient will require the following post-hospital care: None Practitioner: I am a practitioner with admitting privileges, knowledge of patient current condition, hospital course, and medical plan of care. Services: Services provided to patient in accordance with Admission requirements found in Title 42 Section 412.3 of the Code of Federal Regulations <Dakota Lundberg - Last Filed: 11/05/22 01:08> Patient History Date of Service: 11/05/22 Reason for admission: Sepsis, UTI History of Present Illness: 87-year-old male with history of CAD, gout,, colon/bladder cancer in remission presents to the emergency department with lethargy, fever, tachycardia. His family reports that last night he was reporting urinary frequency, today he had an episode of weakness/confusion at the grocery store and after returning home they had not heard from him in a few hours, they went to his house to check on him and found him in the position with decreased responsiveness, EMS was called. Patient presented to the emergency department awake but drowsy tachycardic to 130 with fever. His labs were significant for leukocytosis white blood cell count 13.3 hemoglobin 12.4 hematocrit 36.2 sodium 132 urinalysis 2+ nitrite 2+ blood 2+ ketone positive leuk esterase 20-50 bacteria no squamous greater than [address] chest abdomen pelvis without contrast was performed which revealed mild bladder wall thickening may be secondary to posttreatment change inflammation or chronic outlet obstruction. CT head was also performed which showed linear calcifications within the brain bilaterally may be related to metabolic disturbance such as hypothyroidism, no acute intracranial abnormality. Patient started on broad-spectrum involving vancomycin/Zosyn he received 30 cc/kg IV fluid bolus in the emergency department his initial lactate was 1.2. Will need to be admitted for sepsis, UTI. - Past Medical/Surgical History Diabetic: No -: CAD -: Colon/bladder cancer in remission. -: 2002 resection -: 2005 removal scar tissue -: bladder cancer -: hernia operation with mesh -: heart cath with stent -: basal cell removal Psychosocial/ Personal History: Pt lives at home alone, family lives close and checks on him daily. - Family History Father Notes: in age of 50's Mother -: Heart disease Brother Notes: none - Social History Smoking Status: Never smoker Alcohol use: No CD- Drugs: No Caffeine use: Yes Place of Residence: Home <Dakota Lundberg Siobhan Stout - Last Filed: 11/05/22 01:08> Date of Service: 11/05/22 <Wagner Serrano - Last Filed: 11/05/22 22:37> Allergies Penicillins Allergy (Intermediate, Verified 07/27/18 11:05) Hives/Rash Home Medications: Atorvastatin Calcium [Lipitor*] 40 mg PO BEDTIME #30 tab 12/06/14 Brimonidine Tartrate/Timolol [Combigan 0.2%-0.5% Eye Drops] 1 gtt EACH EYE BID 0 07/27/18 Guaifenesin [Mucinex] 600 mg PO BID PRN 07/27/18 Latanoprost [Xalatan] 1 gtt EACH EYE BEDTIME 07/27/18 Losartan Potassium [Cozaar*] 25 mg PO [id number] 07/27/18 Metoprolol Succinate [Toprol Xl*] 25 mg PO [id number] 07/27/18 Vit A/Vit C/Vit E/Zinc/Copper [Icaps Areds Formula Dr Tablet] 1 each PO BID 07/27/18 Review of Systems 10-point ROS is otherwise unremarkable General: Fever, Chills, Weakness, Malaise Genitourinary: Frequency <ToñoDakota Stout - Last Filed: 11/05/22 01:08> Physical Examination - Physical Exam General: Alert, In no apparent distress, Oriented x3 HEENT: Atraumatic, PERRLA, Mucous membr. moist/pink, EOMI, Sclerae nonicteric Neck: Supple, 2+ carotid pulse no bruit, No LAD, Without JVD or thyroid abnormality Respiratory: Clear to auscultation bilaterally, Normal air movement Cardiovascular: Regular rate/rhythm, Normal S1 S2 Capillary refill: <2 Seconds Gastrointestinal: Normal bowel sounds, No tenderness Musculoskeletal: No tenderness Integumentary: No rashes Neurological: Normal speech, Normal strength at 5/5 x4 extr, Normal tone, Normal affect - Studies Laboratory Data (last 24 hrs) 11/04/22 21:14: PT 12.4, INR 1.13, APTT 25.3 11/04/22 21:14: Sodium 132 L, Potassium 3.8, BUN 18, Creatinine 1.25, Glucose 99, Total Bilirubin 0.9, AST 14 L, ALT 16, Alkaline Phosphatase 63 11/04/22 21:14: WBC 13.30 H, Hgb 12.4 L, Hct 36.2 L, Plt Count 249 Microbiology Data (last 24 hrs): 11/04/22 23:45 Nasopharnyx Influenza Type A Antigen Screen - Final 11/04/22 23:45 Nasopharnyx Influenza Type B Antigen Screen - Final <Dakota Lundberg - Last Filed: 11/05/22 01:08> - Studies Laboratory Data (last 24 hrs) 11/04/22 21:14: Sodium 132 L, Potassium 3.8, BUN 18, Creatinine 1.25, Glucose 99, Total Bilirubin 0.9, AST 14 L, ALT 16, Alkaline Phosphatase 63 Microbiology Data (last 24 hrs): 11/04/22 23:45 Nasopharnyx Influenza Type A Antigen Screen - Final 11/04/22 23:45 Nasopharnyx Influenza Type B Antigen Screen - Final <Wagner Serrano - Last Filed: 11/05/22 22:37> Assessment and Plan - Plan Assessment: Septic shock secondary to UTI Metabolic encephalopathy secondary to sepsis-improving HX of CAD Glaucoma Hx of Colon/Bladder CA Plan: Septic shock secondary to UTI SIRS criteria present including fever, leukocytosis, tachycardia. Source of infection present urinary tract infection. He has now had 2 blood pressures less than 90 systolic qualifying for septic shock. He has received 30 cc/kg IV fluid bolus, he is currently receiving additional IV fluid bolus and may require central line/vasopressors. Patient will be admitted to the ICU. Metabolic encephalopathy secondary to sepsis-improving Patient now oriented x4, improving after IV fluids, his fever breaking. HX of CAD Glaucoma Hx of Colon/Bladder CA DVT PPX:Lovenox Code status:Full Discharge Plan: Home Plan to discharge in: 72 Hours - Advance Directives Does patient have a Living Will: Yes Does patient have a Durable POA for Healthcare: Yes - Code Status/Comfort Care Code Status Assessed: Yes (Full code) Critical Care: No Time Spent Managing Pts Care (In Minutes): 70 <Dakota Lundberg - Last Filed: 11/05/22 01:08> - Plan Patient seen an examined on rounds this morning. ~3 minutes after levophed discontinued, patient's HR increased to 170-190, BP climbed up to 200s/110s, with rigors. he reported feeling very cold. no fever given 500ml bolus and warming blanket placed. Shortly after, patient's rigors improved, HR improved to 130s sinus tachycardia, BP improved to 120s-130s/70s. Unclear etiology of event. Nursing staff checked IV and no inadvertent levophed bolus given per their report. Penicillin allergy noted; however patient tolerated Zosyn in ED. Received cefepime ~1.5-2hr prior to event <Wagner Serrano - Last Filed: 11/05/22 22:37>
[2022-11-05] MEDS ORDERED: NA CHLORIDE 0.9% 500 ML ONE (01:27)
[2022-11-05] MEDS ORDERED: VANCOMYCIN 1 GM in NA CHLORIDE 0.9% 250 ML IVPB SCH (01:44)
--- NOTE | 2022-11-05 02:24 | P.PN ---
Date of Service: 11/05/22 Sepsis reassessment complete, meets criteria for septic shock, not requiring vasopressors yet but Central line in place. Will admit to ICU
[2022-11-05] MEDS: NA CHLORIDE 0.9% 1,000 ML IV SCH ×3 (04:19→18:22)
[2022-11-05] MEDS ORDERED: NOREPINEPHRINE 4 MG in D5W 250 ML IV SCH (06:00)
[2022-11-05] MEDS: ENOXAPARIN 40 MG/0.4 ML SQ SCH (07:55)
[2022-11-05] MEDS: CEFEPIME 1 GM in NA CHLORIDE 0.9% 100 ML IV SCH ×2 (07:56→20:20)
[2022-11-05] MEDS ORDERED: NA CHLORIDE 0.9% 500 ML IV ONE (11:10)
[2022-11-05] MEDS: ONDANSETRON 4 MG/2 ML VIAL IV PRN (11:28)
[2022-11-05 11:52] LABS: Absolute Lymphocytes (CBC) 0.3 K/uL (0.7-4.9); Lymphocytes % 3.8 % (15.3-44.8); MCV 92.7 fL (80-100); MPV 6.3 fL (7.6-11.3); RBC Red Blood Cell Count 3.35 M/uL (4.33-5.43)
[2022-11-05 12:08] LABS: Albumin 2.7 g/dL (3.4-5.0); Bilirubin Total 0.7 mg/dL (0.2-1.0); Magnesium 1.6 mg/dL (1.6-2.4); Phosphorus 2.3 mg/dL (2.5-4.9); Potassium 3.8 mEq/L (3.5-5.1); Protein, Total 5.9 g/dL (6.4-8.2)
[2022-11-05] MEDS ORDERED: Magnesium Sulfate 2gm IVPB 2 G/50 ML BAG IV ONE (12:28)
[2022-11-05 12:40] LABS: Blood Morphology Comment NOT SEEN (NOT SEEN); Platelet Estimate ADEQ
--- NOTE | 2022-11-05 15:18 | EKG ---
Test Date: 2022-11-04 Test Time: 21:23:30 Hair Spring Cutter: MB MEASUREMENT RESULTS: Intervals: Rate: 121 AK: 144 QRSD: 82 QT: 368 QTc: 522 [place]: P: AK: 144 QRS: 75 T: 83 INTERPRETIVE STATEMENTS: Sinus tachycardia Otherwise normal ECG Compared to ECG 12/05/2014 10:31:55 Sinus rhythm no longer present Myocardial infarct finding no longer present ST (T wave) deviation no longer present Possible ischemia no longer present Electronically Signed On 11-05-22 15:17:08 CDT by Rubio Tom
--- NOTE | 2022-11-05 18:52 | CON ---
Date of Consultation: 11/05/2022 Reason For Consultation: Congestive heart failure management and tachycardia. History Of Present Illness: 87-year-old male, very poor historian. Most part of his information of this consult is from the ER documents and the hospital documents. He has history of coronary artery disease and colon and bladder cancer in remission, who presented to the emergency room, very lethargi c, altered mental status, fever and tachycardia. Family reported that the patient has been having si gnificant urinary frequency and dysuria as well as fever and altered mental status. In the ER, he wa s hypotensive and tachycardic, so I was called initially by the ER physician telling me that this coy heaton is seen here with the CHF and he was hypotensive and tachycardic. I recommended at that time phoenix aburto to be transferred due to the concern of cardiogenic shock. However, apparently the patient was septic and after proper management of sepsis, patient has stabilized by bedside now, and his heart r ate is in the low 100 and 105. Has no chest pain. No shortness of breath. No orthopnea. Past Medical History: Coronary artery disease. Colon cancer. Questionable history of congestive he art failure. Bladder cancer. Medications: Refer to reconciliation sheet for detailed list. Allergies: PENICILLIN. Family History: No premature coronary artery disease or cancer. Social History: Does not smoke or drink. Does not use any drugs. Review of Systems: All systems reviewed and they were negative except for mentioned in the HPI. Physical Examination: Vital Signs: Reviewed. Head and Neck: Pupils are equal and reactive to light. Intact eye movements. No JVD. No cervical lymphadenopathy. Neck is supple. Thyroid is not enlarged. Lungs: Rhonchi bilaterally. No accessory muscle use or muscle retraction. Heart: Regular rate and rhythm. No extra sounds. Abdomen: Soft, nontender. Bowel sounds positive. No organomegaly. No masses or hernia. No rigidit y or rebound. Extremities: No edema, clubbing, or cyanosis. Intact pulses. Skin: No rash. Neurologic: Alert, awake, oriented x3. No acute focal deficits appreciated. Investigations: BUN 18, creatinine 1.1. Hemoglobin is 10.4 8.2, down from 13.3. The uri nalysis showed more than 50 white blood cells. Assessment And Recommendations: 1.Tachycardia. This is sinus tachycardia, which is appropriate for the sepsis condition that he is in. Patient is possibly septic from urinary tract infection. Recommendations will be proper managem ent of sepsis with IV antibiotics and he might need IV hydration as well. To be done gently until an echo is done. I am not sure of his ejection fraction. There is no recent echo in the system. Last echo was done in 2014. At that time, he had moderately depressed left ventricle function 35% to 40% . 2.Sepsis and septic shock. He required pressors overnight. He is off pressors now, on proper antib iotics. I will monitor the patient with you. Please obtain an echocardiogram when feasible. /NICHOL Voice ID: [id number] Report ID: [id number]
[2022-11-06 05:15] LABS: Hematocrit 26.3 % (39.6-49.0); Lymphocytes % 8.7 % (15.3-44.8); MCV 92.3 fL (80-100); RBC Red Blood Cell Count 2.84 M/uL (4.33-5.43)
[2022-11-06 05:25] LABS: Albumin 2.2 g/dL (3.4-5.0); Bilirubin Total 0.5 mg/dL (0.2-1.0); Potassium 3.5 mEq/L (3.5-5.1)
[2022-11-06] MEDS: NA CHLORIDE 0.9% 1,000 ML IV SCH ×5 (06:02→22:32)
[2022-11-06] MEDS ORDERED: KCL 20 MEQ/100 mL IVPB 20 MEQ/100 ML BAG IV SCH (07:00)
--- NOTE | 2022-11-06 07:32 | P.PN ---
Date of Service: 11/06/22 Subjective: looking and feeling much better this morning off levo since ~5 am today claims hes been more constipated since his fall ~2months ago increase frequency of urination over last few weeks; no steady stream ROS: 10 point ROS as noted above, otherwise negative Physical Exam: GEN: Alert, oriented, NAD HEENT: Normal conjunctiva, sclera anicteric CV: Regular rate and rhythm, no edema Pulm: Nonlabored respirations on room air, diminished at bases b/l ABD: Soft, nontender, nondistended Neuro: Normal speech, normal affect, moves all extremities, generalized weakness Vera in place vitals reviewed Problem List: Septic shock secondary to UTI Metabolic encephalopathy secondary to sepsis-improving Hx of Colon/Bladder CA HX of CAD Glaucoma Constipation Septic shock secondary to UTI required levophed two different times 11/05: ~3 minutes after levophed discontinued 11/05 AM, patient's HR increased to 170-190, BP climbed up to 200s/110s, with rigors. he reported feeling very cold. no fever given 500ml bolus and warming blanket placed. Shortly after, patient's rigors improved, HR improved to 130s sinus tachycardia, BP improved to 120s-130s/70s. Unclear etiology of event Penicillin allergy noted; however patient tolerated Zosyn in ED. Received cefepime ~1.5-2hr prior to event. tolerating antibiotics GNR bacteremia continue empiric antibiotics Vera placed in ED and removed for unclear reason, placed in ICU for strict I/O's given septic shock and required pressors Blood culture: GNR Urine culture: 100,000 CFU/ML, +4GNR Continue Cefepime (11/05) Added Vanc 11/06 Cardiology consulted - pt with tachycardia, suspect due to sepsis; improved Chest CT 11/04 - Mild bladder wall thickening; Moderate amount of stool within the left colon Head CT 11/04 - Linear calcifications within the brain bilaterally may be related to a metabolic disturbance such as hypothyroidism CXR 11/05 - No evidence of acute intrathoracic disease Echo pending Metabolic encephalopathy secondary to sepsis-improving Patient now oriented x4, improving after IVF afebrile Hx of Colon/Bladder CA reportedly in remission; s/p BCG therapy patient states has been many years since last saw urologist HX of CAD Glaucoma Constipation VTE: Lovenox Code: Full Dispo: Home 2+ days Continue ICU level of care
[2022-11-06] MEDS: CEFEPIME 1 GM in NA CHLORIDE 0.9% 100 ML IV SCH ×2 (07:57→20:21)
[2022-11-06] MEDS: ENOXAPARIN 40 MG/0.4 ML SQ SCH (07:58)
[2022-11-06] MEDS ORDERED: VANCOMYCIN 1.25 GM in NA CHLORIDE 0.9% 250 ML IVPB SCH ×2 (10:00→12:00)
--- NOTE | 2022-11-06 12:20 | RAD REPORT ---
EXAM DESCRIPTION: RAD - Chest Single View - 11/05/2022 2:51 am CLINICAL HISTORY: 87 years Male, line placement COMPARISON: CT chest report from 11/04/2022. The images were unavailable for review. TECHNIQUE: Single portable x-ray view of the chest performed on 11/05/2022 at 2:48 AM FINDINGS: The lungs are well expanded and are clear. There is no evidence of a pneumothorax. The cardiac silhouette is normal in size and configuration. The mediastinal contours are normal. No acute osseous abnormality is identified. No acute soft tissue abnormalities are seen. Lines and tubes: The right IJ central venous catheter tip terminates in the region of the superior vena cava. Free air: None IMPRESSION: No evidence of acute intrathoracic disease. The tip of the right IJ central venous nevaeh ter terminates in the region of the superior vena cava. Electronically signed by: Laura Worley DO 11/05/2022 3:27 AM CDT Due to temporary technical issues with the PACS/Fluency reporting system, reports are being signed by the in house radiologists without review as a courtesy to insure prompt reporting. The interpreting radiologist is fully responsible for the content of the report.
--- NOTE | 2022-11-06 13:32 | RAD REPORT ---
EXAM DESCRIPTION: RAD - Chest Single View - 11/06/2022 1:26 pm CLINICAL HISTORY: Pneumonia? COMPARISON: Chest Single View dated 11/05/2022; CHEST SINGLE VIEW dated 12/05/2014; CHEST PA AND LAT 2 VIEW dated 07/16/2012; CHEST PA AND LAT 2 VIEW dated 07/21/2011 FINDINGS: Lines: Right IJ approach catheter with tip overlying the SVC. Lungs: No evidence of edema or pneumonia. Pleural: No significant pleural effusions or pneumothorax. Cardiac: The heart size is within normal limits. Mediastinum: Within normal limits. Bones: No acute fractures. Other: None IMPRESSION: No acute cardiopulmonary disease.
[2022-11-06 16:25] LABS: Hematocrit 25.4 % (39.6-49.0); MCV 90.9 fL (80-100); MPV 6.7 fL (7.6-11.3)
[2022-11-07 06:12] LABS: Absolute Lymphocytes (CBC) 0.7 K/uL (0.7-4.9); Hematocrit 24.6 % (39.6-49.0); Lymphocytes % 9.9 % (15.3-44.8); MPV 7.2 fL (7.6-11.3); RBC Red Blood Cell Count 2.68 M/uL (4.33-5.43)
[2022-11-07 06:31] LABS: Albumin 1.9 g/dL (3.4-5.0); Bilirubin Total 0.4 mg/dL (0.2-1.0); Ferritin 289.6 ng/mL (26-388); Potassium 3.7 mEq/L (3.5-5.1); Protein, Total 4.6 g/dL (6.4-8.2)
--- NOTE | 2022-11-07 06:58 | P.PN ---
Date of Service: 11/07/22 Subjective: Feels much better this morning remains off levo no nausea / vomiting / diarrhea only complaint is that hes very cold ROS: 10 point ROS as noted above, otherwise negative Physical Exam: GEN: Alert, oriented, NAD HEENT: Normal conjunctiva, sclera anicteric CV: Regular rate and rhythm, no edema Pulm: Nonlabored respirations on 3L NC, diminished at bases b/l ABD: Soft, nontender, nondistended Neuro: Normal speech, normal affect, moves all extremities, generalized weakness Vera in place vitals reviewed Problem List: Septic shock secondary to UTI (E. coli bacteremia) Metabolic encephalopathy secondary to sepsis-resolved Hx of Colon/Bladder CA HX of CAD Glaucoma Constipation Septic shock secondary to UTI (E. coli bacteremia) required levophed two different times - last on 11/06 ~5am 11/05: ~3 minutes after levophed discontinued 11/05 AM, patient's HR increased to 170-190, BP climbed up to 200s/110s, with rigors. he reported feeling very cold. no fever given 500ml bolus and warming blanket placed. Shortly after, patient's rigors improved, HR improved to 130s sinus tachycardia, BP improved to 120s-130s/70s. Unclear etiology of event Penicillin allergy noted; however patient tolerated Zosyn in ED. Received cefepime ~1.5-2hr prior to event. tolerating antibiotics Vera placed in ED and removed for unclear reason, placed in ICU for strict I/O's given septic shock and required pressors Blood culture: E. Coli Urine culture: E. Coli Continue Cefepime (11/05), DC Vanc ID consulted Cardiology consulted - pt with tachycardia, suspect due to sepsis; improved Chest CT 11/04 - Mild bladder wall thickening; Moderate amount of stool within the left colon Head CT 11/04 - Linear calcifications within the brain bilaterally may be related to a metabolic disturbance such as hypothyroidism CXR 11/05 - No evidence of acute intrathoracic disease Repeat CXR 11/07 pending Echo pending Metabolic encephalopathy secondary to sepsis-improving Patient now oriented x4, improving after IVF afebrile Hx of Colon/Bladder CA reportedly in remission; s/p BCG therapy patient states has been many years since last saw urologist 2 months of constipation/decreased sensation fell ~2 months ago, since then, does not feel when he needs to have BM once stable, consider further imaging neuro consulted HX of CAD Glaucoma Constipation VTE: Lovenox Code: Full Dispo: Home 2+ days Possible downgrade from ICU today
[2022-11-07] MEDS: CEFEPIME 1 GM in NA CHLORIDE 0.9% 100 ML IV SCH (07:20)
[2022-11-07] MEDS: ENOXAPARIN 40 MG/0.4 ML SQ SCH (07:20)
[2022-11-07] MEDS: NA CHLORIDE 0.9% 1,000 ML IV SCH ×2 (09:19→22:28)
[2022-11-07] MEDS ORDERED: POTASSIUM CL SA 10 MEQ TAB PO ONE (09:30)
[2022-11-07] MEDS ORDERED: VANCOMYCIN 1.25 GM in NA CHLORIDE 0.9% 250 ML IVPB SCH (10:00)
--- NOTE | 2022-11-07 12:15 | P.CNS ---
Date of Consult: 11/07/22 Reason for Consult: E.coli Bacteremia Chief Complaint: Sepsis, UTI History of Present Illness: Patient is an 87 yo male with a history of CAD, colon and bladder cancer, and gout who presented to the ED with complaints of fever, lethargy and urinary frequency. Patient was brought in by his family members after finding him with decreased responsiveness at his home. Upon arrival, he was found to be tachycardic HR 120+, hypotensive, febrile with a temp of 102.9 F and was subsequently admitted to the ICU and started on levophed drip. UA positive, patient was started on Cefepime. Urine culture positive for E.coli and blood cultures revealing E.coli bacteremia, ID was consulted. Patient is seen in the ICU, awake and oriented x3, not in distress. Family members at bedside. Allergies Penicillins Allergy (Intermediate, Verified 07/27/18 11:05) Hives/Rash Home medications list reviewed: Yes Home Medications: Atorvastatin Calcium [Lipitor*] 40 mg PO BEDTIME #30 tab 12/06/14 Brimonidine Tartrate/Timolol [Combigan 0.2%-0.5% Eye Drops] 1 gtt EACH EYE BID 07/27/18 Latanoprost [Xalatan] 1 gtt EACH EYE BEDTIME 07/27/18 - Past Medical/Surgical History Diabetic: No -: CAD -: Colon/bladder cancer in remission. -: Gout -: HTN -: HDL -: 2002 resection -: 2005 removal scar tissue -: bladder cancer -: hernia operation with mesh -: heart cath with stent -: basal cell removal Psychosocial/ Personal History: Pt lives at home alone, family lives close and checks on him daily. - Family History Father Notes: in age of 50's Mother Medical History: Heart disease Brother Notes: none - Social History Alcohol use: No CD- Drugs: No Caffeine use: Yes Place of Residence: Home Review of Systems 10-point ROS is otherwise unremarkable General: Weakness Respiratory: Other (pain on deep inspiration middle chest) Gastrointestinal: Constipation Physical Examination Temp Pulse Resp BP Pulse Ox 97.8 F 72 14 93/49 L 92 11/07/22 08:00 11/07/22 11:00 11/07/22 09:00 11/07/22 11:00 11/07/22 11:00 General: Alert, In no apparent distress, Oriented x3 HEENT: Atraumatic, Normocephalic Neck: Supple, JVD not distended Respiratory: Crackles/rales (R>L) Cardiovascular: No edema, Normal pulses Gastrointestinal: Normal bowel sounds, Soft and benign, Non-distended Musculoskeletal: No clubbing, No swelling Integumentary: No rashes, No breakdown Neurological: Normal tone, Normal affect Laboratory Data - Reviewed Microbiology Data - Reviewed Imagings Data: - Reviewed Conclusions/Impression: Problem List - Sepsis - Bacteremia, E.coli - UTI, E.coli - CAD - Gout - Hx Colon cancer - Hx Bladder cancer * Allergy: Penicillins* Bacteremia secondary to UTI, E.coli - Urine culture 11/04: Escherichia coli - Blood culture 11/04: Escherichia coli - Leukocytosis improved - Afebrile - Previously on Cefepime (11/05-11/07) Aspiration Pneumonia - XR Chest 11/07: "New patchy airspace opacities in the right lung and left base, could reflect pneumonia, less likely early pulmonary edema." - Patient reports sharp pain on deep inhale midline lower chest - Episode of emesis x1 reported 2 days ago. - Patient on 2-3L NC, Desaturates to around 80-85% off O2. He does not use oxygen at home. Denies cough. - Crackles at lung bases R>L. Cefepime switched to Rocephin and Flagyl (11/07) Recommendations - Continue Rocephin and Flagyl for now - Continue supportive care and nutritional support as needed - Monitor WBC and fever trends ID will follow up and monitor patient closely Case discussed with Whitley Bob
[2022-11-07] MEDS: CEFTRIAXONE 2,000 MG in NA CHLORIDE 0.9% 100 ML IV SCH (12:27)
[2022-11-07] MEDS: METRONIDAZOLE 500mg IVPB 500 MG/100 ML BAG IV SCH ×2 (12:27→19:47)
--- NOTE | 2022-11-07 12:42 | EKG ---
Test Date: 2022-11-05 Test Time: 18:10:24 Obstetrics And Gynecology Professor: MG MEASUREMENT RESULTS: Intervals: Rate: 86 OH: 214 QRSD: 76 QT: 354 QTc: 423 [place]: P: 87 OH: 214 QRS: 86 T: 97 INTERPRETIVE STATEMENTS: Sinus rhythm with 1st degree AV block Nonspecific T wave abnormality Abnormal ECG Electronically Signed On 11-07-22 12:37:28 CDT by Eder Chatterjee
--- NOTE | 2022-11-07 12:43 | EKG ---
Test Date: 2022-11-04 Test Time: 23:22:46 Pre Billing Clinician: MB MEASUREMENT RESULTS: Intervals: Rate: 97 PA: 216 QRSD: 78 QT: 370 QTc: 469 [place]: P: 99 PA: 216 QRS: 76 T: 85 INTERPRETIVE STATEMENTS: Sinus rhythm with 1st degree AV block with premature atrial complexes Anterior infarct, age undetermined Abnormal ECG Compared to ECG 11/04/2022 21:23:30 Atrial premature complex(es) now present First degree AV block now present Myocardial infarct finding now present Sinus tachycardia no longer present Electronically Signed On 11-07-22 12:37:41 CDT by Eder Chatterjee
--- NOTE | 2022-11-07 13:23 | RAD REPORT ---
EXAM DESCRIPTION: RADChest Single View11/07/2022 1:15 pm CLINICAL HISTORY: Chest pain with deep breathing COMPARISON: Chest Single View dated 11/06/2022; Chest Single View dated 11/05/2022; CHEST SINGLE VIEW dated 12/05/2014; CHEST PA AND LAT 2 VIEW dated 07/16/2012 TECHNIQUE: Portable AP view of the chest. FINDINGS: Right IJ CVC in place, with catheter tip projecting along the proximal SVC. New patchy air space opacities throughout the right lung most pronounced at the base. Possible small right effusion. Minimal patchy left basilar opacities. No pneumothorax or left-sided effusion. The cardiomediastinal contours are unremarkable. IMPRESSION: New patchy airspace opacities in the right lung and left base, could reflect pneumonia, less likely early pulmonary edema. Right IJ CVC has been retracted its tip now projecting along the proximal SVC.
[2022-11-07] MEDS ORDERED: NOREPINEPHRINE BITARTRATE/D5W 4 MG/250 ML BAG IV SCH (14:15)
[2022-11-07] MEDS ORDERED: Meropenem 1,000 MG in NA CHLORIDE 0.9% 100 ML IV SCH (17:00)
--- NOTE | 2022-11-07 19:22 | PN ---
Admitted to Dr. Serrano with sepsis, UTI, acute on chronic systolic congestive heart failure with an EF of 40% in 2015, supraventricular tachycardia. He was seen by Dr. Tom. Patient now is in sinus r hythm. Mental status has improved on antibiotics. He is still on Lovenox, Levophed has been stopped . He is being hydrated gently. Echocardiogram is pending. We will continue his present regimen. W e will make further decision depending on the ejection fraction. Continue to follow. KT/NICHOL Voice ID: [id number] Report ID: [id number]
[2022-11-07] MEDS: DOCUSATE NA 100 MG CAP PO PRN (20:25)
[2022-11-07] MEDS: Mupirocin NASAL 2 APPL/1 GM TUBE NAS SCH (20:25)
[2022-11-08] MEDS: METRONIDAZOLE 500mg IVPB 500 MG/100 ML BAG IV SCH ×3 (03:44→20:54)
[2022-11-08 06:38] VITALS: BMI 19.5
[2022-11-08 07:11] LABS: Absolute Lymphocytes (CBC) 0.8 K/uL (0.7-4.9); Hematocrit 26.3 % (39.6-49.0); Lymphocytes % 11.3 % (15.3-44.8); MCV 90.5 fL (80-100); MPV 6.9 fL (7.6-11.3); RBC Red Blood Cell Count 2.91 M/uL (4.33-5.43)
[2022-11-08 07:29] LABS: Albumin 2.1 g/dL (3.4-5.0); Bilirubin Total 0.5 mg/dL (0.2-1.0); Potassium 3.6 mEq/L (3.5-5.1)
[2022-11-08] MEDS: CEFTRIAXONE 2,000 MG in NA CHLORIDE 0.9% 100 ML IV SCH (08:13)
[2022-11-08] MEDS: ENOXAPARIN 40 MG/0.4 ML SQ SCH (08:13)
[2022-11-08] MEDS: NA CHLORIDE 0.9% 1,000 ML IV SCH ×2 (08:13→20:54)
[2022-11-08] MEDS: Mupirocin NASAL 2 APPL/1 GM TUBE NAS SCH ×2 (08:14→20:54)
[2022-11-08] MEDS ORDERED: POTASSIUM CL SA 10 MEQ TAB PO ONE (09:00)
--- NOTE | 2022-11-08 10:17 | ECHO ---
HEIGHT: 6 ft 0 in WEIGHT: 144 lb 1.6 oz DATE OF STUDY: 11/07/[address]: Wagner Serrano MD 2-DIMENSIONAL: YES M.MODE: YES DOPPLER: YES COLOR FLOW: YES TDS: NO PORTABLE: YES DEFINITY: NO BUBBLE STUDY: NO DIAGNOSIS: EVALUATE FUNCTION, HISTORY OF EF 35% CARDIAC HISTORY: CATHERIZATION:YES SURGERY: NO PROSTHETIC VALVE: NO PACEMAKER: NO MEASUREMENTS (cm) DIASTOLIC (NORMALS) SYSTOLIC (NORMALS) IVSd 1.0 (0.6-1.2) LA Diam 2.9 (1.9-4.0) LVEF 38% LVIDd 4.8 (3.5-5.7) LVIDs 3.9 (2.0-3.5) %FS 18% LVPWd 1.2 (0.6-1.2) Ao Diam 2.7 (2.0-3.7) 2 DIMENSIONAL ASSESSMENT: RIGHT ATRIUM: NORMAL LEFT ATRIUM: NORMAL RIGHT VENTRICLE: NORMAL LEFT VENTRICLE: NORMAL SIZE TRICUSPID VALVE: NORMAL MITRAL VALVE: MITRAL ANNULAR CALCIFICATION PULMONIC VALVE: NORMAL AORTIC VALVE: SCLEROSIS PERICARDIAL EFFUSION: NONE AORTIC ROOT: NORMAL LEFT VENTRICULAR WALL MOTION: MODERATE GLOBAL HYPOKINESIS. DOPPLER/COLOR FLOW: MILD MITRAL AND TRICUSPID REGURGITATION. COMMENTS: 1. NORMAL RIGHT VENTRICULAR SYSTOLIC PRESSURE. 2. MILD MITRAL AND TRICUSPID REGURGITATION. 3. MODERATE GLOBAL HYPOKINESIS. 4. LEFT VENTRICULAR EJECTION FRACTION 38%. 5. MITRAL ANNULAR CALCIFICATION. 6. AORTIC SCLEROSIS. TECHNOLOGIST: Jamil CREWS
--- NOTE | 2022-11-08 10:35 | RAD REPORT ---
EXAM DESCRIPTION: RAD - Chest Single View - 11/08/2022 10:14 am CLINICAL HISTORY: Device placement PICC line placement IMPRESSION: PICC line with its tip in the distal superior vena cava
--- NOTE | 2022-11-08 11:42 | P.PN ---
Date of Service: 11/08/22 Chief Complaint: Sepsis, UTI Subjective: No new changes. Improving. Patient in bed, alert and oriented x3. No new complaints. No acute events reported overnight. Afebrile. Daughter at bedside. Physical Examination Temp Pulse Resp BP Pulse Ox 98.9 F 71 18 136/67 96 11/08/22 08:00 11/08/22 08:00 11/08/22 08:00 11/08/22 08:00 11/08/22 08:00 General: Alert, In no apparent distress, Oriented x3 HEENT: Atraumatic, Normocephalic Neck: Supple, JVD not distended Respiratory: Diminished right lung base Cardiovascular: No edema, Normal pulses Gastrointestinal: Normal bowel sounds, Soft and benign, Non-distended Musculoskeletal: No clubbing, No swelling Integumentary: No rashes, No breakdown Neurological: Normal tone, Normal affect Laboratory Data - Reviewed Microbiology Data - Reviewed Imagings Data: - Reviewed Conclusions/Impression: Problem List - Sepsis - Bacteremia, E.coli - UTI, E.coli - CAD - Gout - Hx Colon cancer - Hx Bladder cancer - Moderate protein calorie malnutrition * Allergy: Penicillins* Bacteremia secondary to UTI, E.coli - Urine culture 11/04: Escherichia coli - Blood culture 11/04: Escherichia coli - Leukocytosis improved - Afebrile - Previously on Cefepime (11/05-11/07) - Currenly on Ceftriaxone (11/07-) - XR Chest 11/07: "New patchy airspace opacities in the right lung and left base, could reflect pneumonia, less likely early pulmonary edema." - Patient reports sharp pain on deep inhale midline lower chest - Episode of emesis x1 reported 2 days ago. - Patient on 2-3L NC, RN reports desaturation to 85-88% off O2. He does not use oxygen at home. - Mild intermittent dry cough - Diminished bilaterally at lung bases R>L. Cefepime switched to Ceftriaxone and Flagyl (11/07) Has been on IV antibiotics since 11/05 Recommendations - Continue Ceftriaxone and Flagyl for now (started 11/07). - Bacteremia, E.coli: will need IV antibiotic x 2 weeks. Has PICC line. - Continue supportive care - Ensure adequate nutrition - add Ensure or Boost - Monitor WBC and fever trends ID will follow up and monitor patient closely Case discussed with Whitley Bob
--- NOTE | 2022-11-08 15:02 | P.PN ---
Subjective Date of Service: 11/08/22 Chief Complaint: Sepsis, UTI Patient is awake and alert. He denies any new complain. He is tolerating diet. No recorded fever. Physical Examination - Vital Signs Temperature: 99.2 F Blood Pressure: 105/58 Pulse: 75 Respirations: 16 Pulse Ox (%): 96 Assessment And Plan - Plan Physical Exam: GEN: Alert, oriented, NAD HEENT: Normal conjunctiva, sclera anicteric CV: Regular rate and rhythm, no edema Pulm: diminished at bases b/l, no crackles ABD: Soft, nontender, nondistended Neuro: Normal speech, normal affect, moves all extremities, generalized weakness Vera in place vitals reviewed Problem List: Septic shock secondary to UTI (E. coli bacteremia) Metabolic encephalopathy secondary to sepsis-resolved Hx of Colon/Bladder CA HX of CAD Glaucoma Constipation Septic shock secondary to UTI (E. coli bacteremia) Was initially on Levophed Status post normal saline boluses. Penicillin allergy noted; however patient tolerated Zosyn in ED. Received cefepime ~1.5-2hr prior to event. tolerating antibiotics Vera placed in ED and removed for unclear reason. Blood culture: E. Coli Urine culture: E. Coli Was on cefepime (11/05), status post vancomycin. ID is following. ID changed antibiotics to IV Rocephin and Flagyl. Chronic systolic heart failure Cardiology consulted - pt with tachycardia, suspect due to sepsis; tachycardia improved. Chest CT 11/04 - Mild bladder wall thickening; Moderate amount of stool within the left colon Head CT 11/04 - Linear calcifications within the brain bilaterally may be related to a metabolic disturbance such as hypothyroidism CXR 11/05 - No evidence of acute intrathoracic disease Echo shows EF of 38% and global hypokinesis. Metabolic encephalopathy secondary to sepsis-improving AMS resolved Patient now oriented x4. PT evaluation for generalized weakness. Hx of Colon/Bladder CA reportedly in remission; s/p BCG therapy Outpatient follow-up. 2 months of constipation/decreased sensation fell ~2 months ago, since then, does not feel when he needs to have BM once stable, consider further imaging neuro consulted HX of CAD Glaucoma Constipation VTE: Lovenox Code: Full Dispo: Pending PT =
[2022-11-08] MEDS: ACETAMINOPHEN 500 MG TAB PO PRN (15:58)
[2022-11-09 04:20] LABS: Absolute Lymphocytes (CBC) 0.8 K/uL (0.7-4.9); Hematocrit 26.5 % (39.6-49.0); Lymphocytes % 11.1 % (15.3-44.8); MCV 90.2 fL (80-100); RBC Red Blood Cell Count 2.94 M/uL (4.33-5.43)
[2022-11-09 04:27] LABS: Potassium 3.5 mEq/L (3.5-5.1)
[2022-11-09] MEDS: METRONIDAZOLE 500mg IVPB 500 MG/100 ML BAG IV SCH (04:48)
[2022-11-09] MEDS: NA CHLORIDE 0.9% 1,000 ML IV SCH ×2 (05:44→07:57)
[2022-11-09] MEDS: CEFTRIAXONE 2,000 MG in NA CHLORIDE 0.9% 100 ML IV SCH (07:58)
[2022-11-09] MEDS: Mupirocin NASAL 2 APPL/1 GM TUBE NAS SCH ×3 (07:58→20:39)
[2022-11-09] MEDS: ENOXAPARIN 40 MG/0.4 ML SQ SCH (07:58)
[2022-11-09] MEDS ORDERED: POTASSIUM CL SA 10 MEQ TAB PO ONE (09:00)
--- NOTE | 2022-11-09 11:50 | P.PN ---
Date of Service: 11/09/22 Chief Complaint: Sepsis, UTI Subjective: No new changes. Improving. Patient sitting in chair, alert and oriented x3. Breathing comfortably on room air at this time. No new complaints. No acute events reported overnight. Afebrile. Daughter at bedside. Physical Examination Temp Pulse Resp BP Pulse Ox 99.6 F 77 14 138/77 97 11/09/22 08:00 11/09/22 08:00 11/09/22 08:00 11/09/22 08:00 11/09/22 08:00 General: Alert, In no apparent distress, Oriented x3 HEENT: Atraumatic, Normocephalic Neck: Supple, JVD not distended Respiratory: Diminished right lung base Cardiovascular: No edema, Normal pulses Gastrointestinal: Normal bowel sounds, Soft and benign, Non-distended Musculoskeletal: No clubbing, No swelling Integumentary: No rashes, No breakdown Neurological: Normal tone, Normal affect Laboratory Data - Reviewed Microbiology Data - Reviewed Imagings Data: - Reviewed Conclusions/Impression: Problem List - Sepsis - Bacteremia, E.coli - UTI, E.coli - CAD - Gout - Hx Colon cancer - Hx Bladder cancer - Moderate protein calorie malnutrition * Allergy: Penicillins* Bacteremia secondary to UTI, E.coli - Urine culture 11/04: Escherichia coli - Blood culture 11/04: Escherichia coli - No leukocytosis - Afebrile - Previously on Cefepime (11/05-11/07) - XR Chest 11/07: "New patchy airspace opacities in the right lung and left base, could reflect pneumonia, less likely early pulmonary edema." - Patient reports sharp pain on deep inhale midline lower chest - Episode of emesis x1 reported 4 days ago. Cefepime switched to Ceftriaxone and Flagyl on 11/07. Has been on IV antibiotics since 11/05 QTc 423 Recommendations - Start on Levaquin PO x 14 days - Discontinue Ceftriaxone and Flagyl - Continue supportive care - Ensure adequate nutrition - add Ensure or Boost - Monitor WBC and fever trends ID will follow up and monitor patient closely Case discussed with Whitley Bob
[2022-11-09] MEDS: levoFLOXacin 750 MG TAB PO SCH (12:03)
--- NOTE | 2022-11-09 12:57 | PN ---
Date of Progress Note: 11/08/2022 Mr. Velasquez is an 87-year-old. Came in with sepsis, UTI, congestive heart failure, supraventricular t achycardia. Has a known ejection fraction of 40% in 2015. He is on antibiotics. Levophed has been stopped. He is being hydrated. He has improved from that standpoint. Echocardiogram which was done revealed an ejection fraction of 38%, which is not changed since 2015. Mr. Velasquez has had a history of colon cancer and bladder cancer, they are remote in the past. He is not a candidate for beta-blo ckade at this point. If his SVT becomes an issue down the road, we may have to address this more agg ressively with EP. For now, we will sign off. Continue present care. KT/NICHOL Voice ID: [id number] Report ID: [id number]
--- NOTE | 2022-11-09 14:43 | P.PN ---
Subjective Date of Service: 11/09/22 Chief Complaint: Sepsis, UTI Patient denies any new complaint today. He is tolerating diet. Daughter reports patient has stool incontinence which is new and occurred after a fall from a height. Physical Examination - Vital Signs Temperature: 99.9 F Blood Pressure: 139/73 Pulse: 81 Respirations: 14 Pulse Ox (%): 97 Assessment And Plan - Plan Physical Exam: GEN: Alert, oriented, NAD HEENT: Normal conjunctiva, sclera anicteric CV: Regular rate and rhythm, no edema Pulm: diminished at bases b/l, no crackles ABD: Soft, nontender, nondistended Neuro: Normal speech, normal affect, moves all extremities. Vera in place vitals reviewed Problem List: Septic shock secondary to UTI (E. coli bacteremia) Metabolic encephalopathy secondary to sepsis-resolved Hx of Colon/Bladder CA HX of CAD Glaucoma Constipation Septic shock secondary to UTI (E. coli bacteremia) Was initially on Levophed Status post normal saline boluses. Penicillin allergy noted; however patient tolerated Zosyn in ED. Received cefepime ~1.5-2hr prior to event. tolerating antibiotics Vera placed in ED and removed for unclear reason. Blood culture: E. Coli Urine culture: E. Coli Was on cefepime (11/05), status post vancomycin. ID is following. Patient has clinically improved. ID changed antibiotics from IV Rocephin and Flagyl to oral Levaquin. Chronic systolic heart failure Cardiology consulted - pt with tachycardia, suspect due to sepsis; tachycardia improved. Chest CT 11/04 - Mild bladder wall thickening; Moderate amount of stool within the left colon Head CT 11/04 - Linear calcifications within the brain bilaterally may be related to a metabolic disturbance such as hypothyroidism CXR 11/05 - No evidence of acute intrathoracic disease Echo shows EF of 38% and global hypokinesis. Metabolic encephalopathy secondary to sepsis-improving AMS resolved Patient now oriented x4. PT evaluation for generalized weakness. Hx of Colon/Bladder CA reportedly in remission; s/p BCG therapy Outpatient follow-up. 2 months of constipation/decreased sensation fell ~2 months ago, since then, does not feel when he needs to have BM once stable, consider further imaging Obtain MRI of the sacrum and lumbar spine to further evaluate. HX of CAD Glaucoma Continue home medications. VTE: Lovenox Code: Full Dispo: Anticipating home with home health. =
--- NOTE | 2022-11-09 16:41 | RAD REPORT ---
EXAM DESCRIPTION: MRI - Spine Lumbar W/Wo Cont - 11/09/2022 4:12 pm CLINICAL HISTORY: Fell off a roof. Numbness. Colon and bladder cancer COMPARISON: None TECHNIQUE: Sagittal T1, T2 and STIR weighted sequences were obtained. Axial T1 and T2 sequences were obtained through the lumbar disc levels. 14 milliliters MultiHance administered intravenously FINDINGS: Mild compression deformity L1 vertebral body. It demonstrates normal signal on all sequenc es and is chronic. No acute fracture. No dislocation 8 millimeter area of abnormal signal inferior vertebral endplate of L2. It demonstrates enhancement. It may represent a Schmorl's node. No significant abnormal enhancement is visualized within the bones or spinal canal. Mild spondylosis involves the spine. No significant abnormal signal within the bones. Epidural lipomatosis sacral spine IMPRESSION: Mild spondylosis lumbar spine No significant central/foraminal stenosis
--- NOTE | 2022-11-09 16:41 | RAD REPORT ---
EXAM DESCRIPTION: MRI - MRI SACRUM W/WO - 11/09/2022 4:12 pm CLINICAL HISTORY: Fell off a roof. Numbness. Colon and bladder cancer COMPARISON: None TECHNIQUE: Axial, sagittal coronal magnetic resonance imaging sacrum performed. 14 cc MultiHance adm inistered intravenously. FINDINGS: Mildly displaced fractures involve the left aspect of S4 and S5 of the sacrum. There is surrounding edema. Posterior dislocation of S4 on S5 is present. No additional significant abnormality seen IMPRESSION: Mildly displaced fractures of S4 and S5 segments of the sacrum. The fractures appear sub acute Posterior dislocation of S4 on S5
[2022-11-09] MEDS: ONDANSETRON 4 MG/2 ML VIAL IV PRN (18:11)
[2022-11-10 06:12] LABS: Potassium 3.6 mEq/L (3.5-5.1)
[2022-11-10] MEDS: ENOXAPARIN 40 MG/0.4 ML SQ SCH (08:11)
[2022-11-10] MEDS: Mupirocin NASAL 2 APPL/1 GM TUBE NAS SCH ×2 (08:11→20:21)
[2022-11-10] MEDS: levoFLOXacin 750 MG TAB PO SCH (08:11)
--- NOTE | 2022-11-10 09:06 | P.PN ---
Date of Service: 11/10/22 Chief Complaint: Sepsis, UTI Subjective: No new changes. Improving. Denies any complaints. Daughter at bedside. Afebrile. A&Ox4. Physical Examination Temp Pulse Resp BP Pulse Ox 98.1 F 81 17 137/66 95 11/10/22 08:00 11/10/22 08:00 11/10/22 08:00 11/10/22 08:00 11/10/22 08:00 General: Alert, In no apparent distress, Oriented x3 HEENT: Atraumatic, Normocephalic Neck: Supple, JVD not distended Respiratory: Diminished right lung base Cardiovascular: No edema, Normal pulses Gastrointestinal: Normal bowel sounds, Soft and benign, Non-distended Musculoskeletal: No clubbing, No swelling Integumentary: No rashes, No breakdown Neurological: Normal tone, Normal affect Studies Laboratory Data - Reviewed Microbiology Data - Reviewed Imagings Data: - XR Chest 11/07: "New patchy airspace opacities in the right lung and left base, could reflect pneumonia, less likely early pulmonary edema." - MRI Sacrum 11/09: "Mildy displaced fractures of S4 and S5 segments of the sacrum. The fractures appear subacute. Posterior dislocation of S4 on S5." Assessment and Plan Problem List - Sepsis - Bacteremia, E.coli - UTI, E.coli - CAD - Gout - Hx Colon cancer - Hx Bladder cancer - Moderate protein calorie malnutrition - Anemia * Allergy: Penicillins* Bacteremia secondary to UTI, E.coli - Urine culture 11/04: Escherichia coli - Blood culture 11/04: Escherichia coli - No leukocytosis - Afebrile - Previously on Cefepime (11/05-11/07); Ceftriaxone and Flagyl (11/07-11/09) - Now on Levaquin PO (started 11/09) Decreased sensation rectum / constipation. - Had a fall 2-3 months ago, and has since been experiencing decreased sensation and feelings of constipation. - MRI sacrum showing "Mildy displaced fractures of S4 and S5 segments of the sacrum. The fractures appear subacute. Posterior dislocation of S4 on S5." Recommendations - Continue Levaquin PO. 10 day course. Has been on antibiotics since 11/05. - d/c holm catheter - Daughter will be staying with patient at home to ensure he will be taking his antibiotic as prescribed and monitor for signs of worsening infection. - Continue supportive care - Nutritional support ID will follow the patient as needed. Case discussed with Whitley Bob
[2022-11-10] MEDS: ACETAMINOPHEN 500 MG TAB PO PRN (16:24)
--- NOTE | 2022-11-10 16:51 | P.DS ---
Admission Date: 11/05/22 Discharge Date: 11/12/22 Disposition: DC HOME/HOME HEALTH CARE Discharge Condition: FAIR Reason for Admission: Sepsis, UTI Brief History of Present Illness: 87-year-old male with history of CAD, gout,, colon/bladder cancer in remission presents to the emergency department with lethargy, fever, tachycardia. His family reports that last night he was reporting urinary frequency, today he had an episode of weakness/confusion at the grocery store and after returning home they had not heard from him in a few hours, they went to his house to check on him and found him in the position with decreased responsiveness, EMS was called. Patient presented to the emergency department awake but drowsy tachycardic to 130 with fever. His labs were significant for leukocytosis white blood cell count 13.3 hemoglobin 12.4 hematocrit 36.2 sodium 132 urinalysis 2+ nitrite 2+ blood 2+ ketone positive leuk esterase 20-50 bacteria no squamous greater than [address] chest abdomen pelvis without contrast was performed which revealed mild bladder wall thickening may be secondary to posttreatment change inflammation or chronic outlet obstruction. CT head was also performed which showed linear calcifications within the brain bilaterally may be related to metabolic disturbance such as hypothyroidism, no acute intracranial abnormality. Patient started on broad-spectrum involving vancomycin/Zosyn he received 30 cc/kg IV fluid bolus in the emergency department his initial lactate was 1.2. Patient admitted for sepsis and UTI. Hospital Course: Diagnosis Septic shock secondary to UTI (E. coli bacteremia) Metabolic encephalopathy secondary to sepsis-resolved Hx of Colon/Bladder CA HX of CAD Glaucoma Constipation Septic shock secondary to UTI (E. coli bacteremia) Was initially on Levophed and in the ICU Status post normal saline boluses. Penicillin allergy noted; however patient tolerated Zosyn in ED. Received cefepime ~1.5-2hr prior to event. He tolerated cefepime Vera placed in ED Blood culture: E. Coli Urine culture: E. Coli Was on cefepime (11/05), status post vancomycin. ID saw and assisted with management Patient has clinically improved. ID changed antibiotics from IV cefepime and vancomycin to IV Rocephin and Flagyl, and later to oral Levaquin after significant clinical improvement. Patient discharged with oral Levaquin to complete 10 days of antibiotic treatment per ID recommendation. He had a single episode of fever of 100.6, his discharge was held and repeat blood cultures obtained with did not show any growth. He never experienced any more fever episodes. Chest x-ray demonstrated mild haziness in the right lower lobe. Patient is discharged with oral Levaquin. Chronic systolic heart failure Cardiology consulted - pt with tachycardia, suspect due to sepsis; tachycardia improved. Chest CT 11/04 - Mild bladder wall thickening; Moderate amount of stool within the left colon Head CT 11/04 - Linear calcifications within the brain bilaterally may be related to a metabolic disturbance such as hypothyroidism CXR 11/05 - No evidence of acute intrathoracic disease Echo shows EF of 38% and global hypokinesis. Patient not a candidate for beta-jorge per cardiology. Blood pressure is borderline low to start lisinopril. Metabolic encephalopathy secondary to sepsis-improving He had altered mental status which resolved Patient now oriented x4. PT evaluation for generalized weakness. He has been able to ambulate several feet with a walker unassisted. Clinically stable for discharge to home with home health. Hx of Colon/Bladder CA reportedly in remission; s/p BCG therapy Outpatient follow-up. 2 months of constipation/decreased sensation fell from a height ~2 months ago, since then, does not feel when he needs to have BM MRI of the sacrum and lumbar spine to further evaluate showed mildly displaced S4-S5 fractures. Case discussed with neurology Dr. Lozoya who suspect crush injury to nerves and recommended supportive measures. HX of CAD Glaucoma Continued home medications. Vital Signs/Physical Exam: Temp Pulse Resp BP Pulse Ox 100.6 F 91 H 14 116/64 93 11/10/22 16:24 11/10/22 16:00 11/10/22 16:00 11/10/22 16:00 11/10/22 16:00 General: Alert, In no apparent distress HEENT: Mucous membr. moist/pink Neck: JVD not distended Respiratory: Clear to auscultation bilaterally, Normal air movement Cardiovascular: No edema, Regular rate/rhythm, Normal S1 S2 Gastrointestinal: Normal bowel sounds, Soft and benign, Non-distended, No tenderness Musculoskeletal: No swelling Integumentary: No rashes, No cyanosis Neurological: Normal strength at 5/5 x4 extr Laboratory Data at Discharge: WBC 7.20 thou/uL (4.3-10.9) 11/09/22 04:00 Hgb 9.0 g/dL (13.6-17.9) L 11/09/22 04:00 Hct 26.5 % (39.6-49.0) L 11/09/22 04:00 Plt Count 135 thou/uL (152-406) L 11/09/22 04:00 PT 12.4 SECONDS (9.5-12.5) 11/04/22 21:14 INR 1.13 11/04/22 21:14 APTT 25.3 SECONDS (24.3-36.9) 11/04/22 21:14 Sodium 135 mEq/L (136-145) L 11/10/22 05:44 Potassium 3.6 mEq/L (3.5-5.1) 11/10/22 05:44 BUN 6 mg/dL (7-18) L 11/10/22 05:44 Creatinine 0.73 mg/dL (0.70-1.30) 11/10/22 05:44 Glucose 84 mg/dL (74-106) 11/10/22 05:44 Phosphorus 2.3 mg/dL (2.5-4.9) L 11/05/22 11:40 Magnesium 1.6 mg/dL (1.6-2.4) 11/05/22 11:40 Total Bilirubin 0.5 mg/dL (0.2-1.0) 11/08/22 07:02 AST 28 U/L (15-37) 11/08/22 07:02 ALT 26 U/L (16-61) 11/08/22 07:02 Alkaline Phosphatase 41 U/L (45-117) L 11/08/22 07:02 Home Medications: Atorvastatin Calcium [Lipitor*] 40 mg PO BEDTIME #30 tab 12/06/14 Brimonidine Tartrate/Timolol [Combigan 0.2%-0.5% Eye Drops] 1 gtt EACH EYE BID 07/27/18 Latanoprost [Xalatan] 1 gtt EACH EYE BEDTIME 07/27/18 Docusate [Colace Cap*] 100 mg PO DAILY #30 cap 11/10/22 levoFLOXacin [Levaquin*] 750 mg PO DAILY #5 tab 11/10/22 New Medications: Docusate [Colace Cap*] 100 mg PO DAILY #30 cap levoFLOXacin [Levaquin*] 750 mg PO DAILY #5 tab Diet: AHA Activity: Fall precautions Followup: Eder Chatterjee MD [ACTIVE - CAN ADMIT] - (within 2 weeks.) Time spent managing pt's care (in minutes): 36
--- NOTE | 2022-11-10 17:40 | P.PN ---
Subjective Date of Service: 11/10/22 Chief Complaint: Sepsis, UTI Patient denies any new complaint today. He has been tolerating diet. Fever up to 100.6 recorded today. Physical Examination - Vital Signs Temperature: 100.6 F Blood Pressure: 116/64 Pulse: 91 Respirations: 14 Pulse Ox (%): 93 Assessment And Plan - Plan Physical Exam: GEN: Alert, oriented, NAD HEENT: Normal conjunctiva, sclera anicteric CV: Regular rate and rhythm, no edema Pulm: Clear to auscultation, adequate breath sounds bilaterally. ABD: Soft, nontender, nondistended Neuro: Normal speech, normal affect, moves all extremities. Vera in place vitals reviewed Problem List: Septic shock secondary to UTI (E. coli bacteremia) Metabolic encephalopathy secondary to sepsis-resolved Hx of Colon/Bladder CA HX of CAD Glaucoma Constipation Septic shock secondary to UTI (E. coli bacteremia) Was initially on Levophed Status post normal saline boluses. Penicillin allergy noted; however patient tolerated Zosyn in ED. Received cefepime ~1.5-2hr prior to event. tolerating antibiotics Vera placed in ED and removed for unclear reason. Blood culture: E. Coli Urine culture: E. Coli Was on cefepime (11/05), status post vancomycin. ID is following. Patient has clinically improved. ID changed antibiotics from IV Rocephin and Flagyl to oral Levaquin. Patient with low-grade fever today. We will reculture urine and blood and obtain chest x-ray Chronic systolic heart failure Cardiology consulted - pt with tachycardia, suspect due to sepsis; tachycardia improved. Chest CT 11/04 - Mild bladder wall thickening; Moderate amount of stool within the left colon Head CT 11/04 - Linear calcifications within the brain bilaterally may be related to a metabolic disturbance such as hypothyroidism CXR 11/05 - No evidence of acute intrathoracic disease Echo shows EF of 38% and global hypokinesis. Patient deemed not a candidate for beta-jorge according to cardiology. BP is soft to initiate MARY inhibitor. Metabolic encephalopathy secondary to sepsis-improving AMS resolved Patient now oriented x4. Patient undergoing PT. He has ambulated several feet. Hx of Colon/Bladder CA reportedly in remission; s/p BCG therapy Outpatient follow-up. 2 months of constipation/decreased sensation fell ~2 months ago, since then, does not feel when he needs to have BM once stable, consider further imaging MRI of the sacrum and lumbar spine showed mildly displaced S4 and S5 fracture. No significant neuro pathology reported. Case discussed with neurology Dr. Lozoya who suspects crush injury of a peripheral nerve in his gluteal area and recommended supportive measures. HX of CAD Glaucoma Continue home medications. VTE: Lovenox Code: Full Dispo: Anticipating home with home health. =
--- NOTE | 2022-11-10 18:18 | RAD REPORT ---
EXAM DESCRIPTION: RAD - Chest Single View - 11/10/2022 6:12 pm CLINICAL HISTORY: Fever Chest pain. COMPARISON: Chest Single View dated 11/08/2022; Chest Single View dated 11/07/2022; Chest Single View da eugenia 11/06/2022; Chest Single View dated 11/05/2022 FINDINGS: Portable technique limits examination quality. Emphysematous changes are present with haziness in the right lung base suggesting mild infiltrate. Th e heart is normal in size. No displaced fractures.Left-sided PICC line has tip in the SVC. IMPRESSION: Haziness in the right lung base likely represents mild infiltrate/ pneumonia.
[2022-11-10 19:35] LABS: Specific Gravity 1.012 (1.005-1.030); Urine Bacteria 20-50 /HPF (<20); Urine Bilirubin NEGATIVE (Negative); Urine Blood 1+ (Negative); Urine Clarity Clear (Clear); Urine Color Light-Yellow (Yellow); Urine Glucose NEGATIVE (Negative); Urine Mucus 2+ /HPF (None Seen); Urine Protein TRACE (Negative); Urine Urobilinogen Normal (Normal); Urine WBC Clump Rare /HPF (None Seen); Urine pH 6.5 (5.0-7.0)
[2022-11-10] MEDS: DOCUSATE NA 100 MG CAP PO PRN (20:24)
[2022-11-11 05:49] LABS: Potassium 3.5 mEq/L (3.5-5.1)
[2022-11-11] MEDS: Mupirocin NASAL 2 APPL/1 GM TUBE NAS SCH ×2 (08:01→20:36)
[2022-11-11] MEDS: ENOXAPARIN 40 MG/0.4 ML SQ SCH (08:01)
[2022-11-11] MEDS: levoFLOXacin 750 MG TAB PO SCH (08:01)
[2022-11-11] MEDS ORDERED: POTASSIUM CL SA 10 MEQ TAB PO ONE (09:00)
--- NOTE | 2022-11-11 09:14 | P.PN ---
Date of Service: 11/11/22 Chief Complaint: Sepsis, UTI Subjective: Patient developed fever of 100.6 yesterday afternoon. Denies shortness of breath, cough, chest pain or wheezing. Denies any nausea, vomiting or abdominal pain. Reports loose stools which started last night. A&Ox4. Physical Examination Temp Pulse Resp BP Pulse Ox 97.9 F 72 14 116/62 91 11/11/22 08:00 11/11/22 08:00 11/11/22 08:00 11/11/22 08:00 11/11/22 08:00 General: Alert, In no apparent distress, Oriented x3 HEENT: Atraumatic, Normocephalic Neck: Supple, JVD not distended Respiratory: Diminished right lung base Cardiovascular: No edema, Normal pulses Gastrointestinal: Normal bowel sounds, Soft and benign, Non-distended Musculoskeletal: No clubbing, No swelling Integumentary: No rashes, No breakdown Neurological: Normal tone, Normal affect Studies Laboratory Data - Reviewed Microbiology Data - Blood cultures 11/04: Escherichia coli - Urine culture 11/04: Escherichia coli - Blood culture 11/10: Pending - Urine culture 11/10: Pending Imagings Data: - XR Chest 11/07: "New patchy airspace opacities in the right lung and left base, could reflect pneumonia, less likely early pulmonary edema." - MRI Sacrum 11/09: "Mildy displaced fractures of S4 and S5 segments of the sacrum. The fractures appear subacute. Posterior dislocation of S4 on S5." - XR Chest 11/10: "Haziness in the right lung base likely represents mild infiltrate/ pneumonia." Assessment and Plan Problem List Sepsis Bacteremia, E.coli UTI, E.coli CAD Gout Hx Colon cancer Hx Bladder cancer Moderate protein calorie malnutrition Anemia * Allergy: Penicillins* Bacteremia secondary to UTI, E.coli - Urine culture 11/04: Escherichia coli - Blood culture 11/04: Escherichia coli - No leukocytosis - Previously on Cefepime (11/05-11/07); Ceftriaxone and Flagyl (11/07-11/09) - On Levaquin PO (started 11/09) - XR Chest 11/07: "New patchy airspace opacities in the right lung and left base, could reflect pneumonia, less likely early pulmonary edema." - Episode of emesis x1 reported on 11/05. - Right lung base diminished on auscultation Temp 100.6 F on 11/10 afternoon. Repeat blood cultures and urine cultures drawn, results pending. XR Chest 11/10 "Haziness in the right lung base likely represents mild infiltrate/ pneumonia." Denies any shortness of breath, cough, chest pain or wheezing. Pt is ambulatory, does not report any SOB on exertion. Breathing comfortably on room air. Recommendations - Continue Levaquin PO. Has been on antibiotics since 11/05. - Added probiotics. Patient reported loose stool overnight. - Awaiting Blood culture and urine culture results - Monitor WBC and fever trends. - Continue to provide nutritional support ID will follow up and monitor the patient closely. Case discussed with Ena Bob.
[2022-11-11 11:31] LABS: Absolute Lymphocytes (CBC) 0.9 K/uL (0.7-4.9); Hematocrit 30.8 % (39.6-49.0); Lymphocytes % 15.6 % (15.3-44.8); MCV 90.9 fL (80-100); MPV 7.3 fL (7.6-11.3); RBC Red Blood Cell Count 3.38 M/uL (4.33-5.43)
--- NOTE | 2022-11-11 16:52 | P.PN ---
Subjective Date of Service: 11/11/22 Chief Complaint: Sepsis, UTI Patient denies any new complaint today. Patient spiked a fever yesterday. No fever today. Physical Examination - Vital Signs Temperature: 97.9 F Blood Pressure: 116/62 Pulse: 72 Respirations: 14 Pulse Ox (%): 91 Assessment And Plan - Plan Physical Exam: GEN: Alert, oriented, NAD HEENT: Normal conjunctiva, sclera anicteric CV: Regular rate and rhythm, no edema Pulm: Clear to auscultation, adequate breath sounds bilaterally. ABD: Soft, nontender, nondistended Neuro: Normal speech, normal affect, moves all extremities. Vera in place vitals reviewed Problem List: Septic shock secondary to UTI (E. coli bacteremia) Metabolic encephalopathy secondary to sepsis-resolved Hx of Colon/Bladder CA HX of CAD Glaucoma Constipation Septic shock secondary to UTI (E. coli bacteremia) Was initially on Levophed Status post normal saline boluses. Penicillin allergy noted; however patient tolerated Zosyn in ED. Received cefepime ~1.5-2hr prior to event. tolerating antibiotics Vera placed in ED and removed for unclear reason. Blood culture: E. Coli Urine culture: E. Coli Was on cefepime (11/05), status post vancomycin. ID is following. Patient has clinically improved. ID changed antibiotics from IV Rocephin and Flagyl to oral Levaquin. Patient with low-grade fever yesterday. UA suggest the presence of UTI. Urine culture and blood cultures are pending. Continue Levaquin for now Chronic systolic heart failure Cardiology consulted - pt with tachycardia, suspect due to sepsis; tachycardia improved. Chest CT 11/04 - Mild bladder wall thickening; Moderate amount of stool within the left colon Head CT 11/04 - Linear calcifications within the brain bilaterally may be related to a metabolic disturbance such as hypothyroidism CXR 11/05 - No evidence of acute intrathoracic disease Echo shows EF of 38% and global hypokinesis. Patient deemed not a candidate for beta-jorge according to cardiology. BP is soft to initiate MARY inhibitor. Metabolic encephalopathy secondary to sepsis-improving AMS resolved Patient now oriented x4. Patient undergoing PT. He has ambulated several feet. Hx of Colon/Bladder CA reportedly in remission; s/p BCG therapy Outpatient follow-up. 2 months of constipation/decreased sensation fell ~2 months ago, since then, does not feel when he needs to have BM once stable, consider further imaging MRI of the sacrum and lumbar spine showed mildly displaced S4 and S5 fracture. No significant neuro pathology reported. Case discussed with neurology Dr. Lozoya who suspects crush injury of a peripheral nerve in his gluteal area and recommended supportive measures. HX of CAD Glaucoma Continue home medications. VTE: Lovenox Code: Full Dispo: Anticipating home with home health. =
[2022-11-12 03:15] LABS: Potassium 3.8 mEq/L (3.5-5.1)
[2022-11-12 08:25] VITALS: BP 114/63; TEMP 98.1
[2022-11-12] MEDS: levoFLOXacin 750 MG TAB PO SCH (08:26)
[2022-11-12] MEDS: Mupirocin NASAL 2 APPL/1 GM TUBE NAS SCH (08:26)
[2022-11-12] MEDS: ENOXAPARIN 40 MG/0.4 ML SQ SCH (08:26)
[2022-11-12] MEDS ORDERED: LACTOBACILLUS/ACIDOPHILUS TAB PO SCH (09:00)
[2022-11-12] MEDS ORDERED: POTASSIUM CL SA 10 MEQ TAB PO ONE (09:00)
[2022-11-12 09:51] VITALS: O2SAT 95
== END 2022-11-12 11:24 | disposition home health service (06) | DRG 871 ==
LOC: ER 20:42 → ERHOLD 11-05 00:45 → 3RD-ICU 11-05 01:31 → 2ND 11-07 21:49
PROVIDERS: ADMIT Hospitalist; ATTEND Internal Medicine
PROC: 02HV33Z Insertion of Infusion Device into Superior Vena Cava, Percutaneous Approach (ICD-10-PCS; principal; 2022-11-08)
PROC: 3E043XZ Introduction of Vasopressor into Central Vein, Percutaneous Approach (ICD-10-PCS; 2022-11-08)
DX: A41.51 Sepsis due to Escherichia coli [E. coli] (principal); G93.41 Metabolic encephalopathy; R65.21 Severe sepsis with septic shock; S32.19XA Other fracture of sacrum, initial encounter for closed fracture; N10 Acute pyelonephritis; I47.1 Supraventricular tachycardia; E44.0 Moderate protein-calorie malnutrition; Z68.1 Body mass index [BMI] 19.9 or less, adult; I50.22 Chronic systolic (congestive) heart failure; E78.5 Hyperlipidemia, unspecified; H40.9 Unspecified glaucoma; K59.00 Constipation, unspecified; M10.9 Gout, unspecified; I25.10 Atherosclerotic heart disease of native coronary artery without angina pectoris; I25.2 Old myocardial infarction; Z60.2 Problems related to living alone; Z95.5 Presence of coronary angioplasty implant and graft; Z88.0 Allergy status to penicillin; Z85.51 Personal history of malignant neoplasm of bladder; Z79.899 Other long term (current) drug therapy; Z85.038 Personal history of other malignant neoplasm of large intestine; Z20.822 Contact with and (suspected) exposure to COVID-19
CPT/HCPCS: 0240U; 36415; 36569; 51702; 70450; 71045; 71250; 72158; 72197; 74176; 80048; 80053; 80202; 81001; 82728; 82947; 83540; 83605; 83735; 84100; 84443; 84466; 85025; 85027; 85610; 85730; 87040; 87077; 87086; 87088; 87186; 87205; 87804; 92610; 93005; 93306; 96361; 96365; 96367; 96375; 97116; 97161; 97165; 99285; A9577; J0692; J0696; J1650; J2405; J2543; J2765; J3475; J3480; J7030; J7040; J7050; J7060; P9047; U0003

== ENCOUNTER 2025-03-26 10:52 | Emergency (ER) | payer OTHER, MEDICARE ==
[2011-11-09 04:33] VITALS: BP 132/85
--- NOTE | 2025-03-26 12:44 | RAD REPORT ---
EXAMINATION: ONE VIEW CHEST XR CLINICAL INDICATION: Male, 89 years old.,fall trauma TECHNIQUE: Frontal chest projection is submitted. Examination is limited by patient positioning and t echnique. COMPARISON: 11/10/2022 FINDINGS: The lungs are diffusely hyper inflated and clear. No pneumothorax or sizable effusion. The heart is normal in size. Mediastinal contours are unremarkable. IMPRESSION: No acute intrathoracic abnormalities.
--- NOTE | 2025-03-26 12:44 | RAD REPORT ---
EXAMINATION: XR RIGHT SHOUDLER CLINICAL INDICATION: Male, 89 years old. fall trauma RIGHT TECHNIQUE:Two view radiograph of the right shoulder were obtained. COMPARISON: Prior chest radiographs dating back to 11/08/2022 FINDINGS: No acute fracture or suspicious osseous lesion. Caudal displacement of the acromion relativ e to the distal clavicle by approximately one shaft width. Findings are new since the prior radiographs. Glenohumeral joint alignment is maintained.. IMPRESSION: Acromioclavicular joint separation as above.
--- NOTE | 2025-03-26 12:49 | ER ---
Nurse's Notes [facility] Name: Marvin Velasquez Age: 89 yrs Sex: Male : 1935 Arrival Date: 03/26/2025 Time: 10:52 Bed 4 Private MD: Diagnosis: Right AC joint separation, mechanical fall, shoulder contusion Presentation: 03/26 10:59 Chief complaint: Patient states: FALL FROM STANDING WHILE GARDENING, NO HEAD STRIKE, NO bp LOC. R SHOULDER PAIN AND DEFORMITY. Coronavirus screen: At this time, the client does not indicate any symptoms associated with coronavirus-19. Ebola Screen: No symptoms or risks identified at this time. Initial Sepsis Screen: Does the patient meet any 2 criteria? No. Patient's initial sepsis screen is negative. Does the patient have a suspected source of infection? No. Patient's initial sepsis screen is negative. Risk Assessment: Do you want to hurt yourself or someone else? Patient reports no desire to harm self or others. Onset of symptoms was March 26, 2025. 10:59 Method Of Arrival: Wheelchair bp 10:59 Acuity: EYAL 3 bp Triage Assessment: 11:00 General: Appears in no apparent distress. Behavior is calm, cooperative, appropriate bp for age. Pain: Complains of pain in anterior aspect of right shoulder. EENT: No deficits noted. Neuro: No deficits noted. Cardiovascular: No deficits noted. Respiratory: No deficits noted. GI: No signs and/or symptoms were reported involving the gastrointestinal system. : No signs and/or symptoms were reported regarding the genitourinary system. Derm: No deficits noted. Musculoskeletal: Circulation, motion, and sensation intact. Bony deformity noted of anterior aspect of right shoulder. Historical: - Allergies: 11:00 PENICILLINS; bp - PMHx: 11:00 Myocardial infarction; bp - Immunization history:: Adult Immunizations up to date. - Infectious Disease History:: Denies. - Social history:: Smoking status: Patient denies any tobacco usage or history of. Screenin:00 [facility] ED Fall Risk Assessment (Adult) History of falling in the last 3 months, bp including since admission Yes- single mechanical fall (1 pt) Confusion or Disorientation No (0 pts) Intoxicated or Sedated No (0 pts) Impaired Gait No (0 pts) Mobility Assist Device Used No (0 pt) Altered Elimination No (0 pt) Score/Fall Risk Level 0 - 2 = Low Risk Oriented to surroundings. Abuse screen: Denies threats or abuse. Denies injuries from another. Nutritional screening: No deficits noted. Tuberculosis screening: No symptoms or risk factors identified. Assessment: 11:00 General: SEE TRIAGE NOTE. bp Vital Signs: 11:00 BP 109 / 67; Pulse 65; Resp 16; Temp 98.9; Pulse Ox 98% ; bp 13:00 BP 111 / 71; Pulse 61; Resp 18; Pulse Ox 97% ; bp ED Course: 10:59 Patient arrived in ED. bp 10:59 Roxanna Shook MD is Attending Physician. sp3 11:00 Triage completed. bp 11:00 Arm band placed on. bp 11:00 Patient has correct armband on for positive identification. bp 11:01 Jesus Pak, RN is Primary Nurse. bp 11:53 Shoulder Right (2 View) XRAY In Process Unspecified. EDMS 11:53 CXR XRAY In Process Unspecified. EDMS 12:48 Dharmesh Teague MD is Referral Physician. sp3 13:01 No provider procedures requiring assistance completed. Patient did not have IV access bp during this emergency room visit. Sling applied to right arm. Administered Medications: No medications were administered Medication: 11:00 VIS not applicable for this client. bp Outcome: 12:48 Discharge ordered by . sp3 13:01 Discharged to home ambulatory, with family, with friend, bp 13:01 Condition: stable 13:01 Discharge instructions given to patient, family, Instructed on discharge instructions, follow up and referral plans. medication usage, Demonstrated understanding of instructions, follow-up care, medications, Prescriptions given X 1, 13:02 Patient left the ED. bp Signatures: Dispatcher [employer] EDJesus Tena, CHERELLE RN bp Roxanna Shook MD MD sp3
--- NOTE | 2025-03-26 12:49 | EDPHYS ---
Physician Documentation [facility] Name: Marvin Velasquez Age: 89 yrs Sex: Male : 1935 Arrival Date: 03/26/2025 Time: 10:52 Bed 4 Private MD: ED Physician Roxanna Shook HPI: 03/26 11:12 This 89 yrs old Male presents to ER via Wheelchair with complaints of Shoulder Pain - sp3 RIGHT. 11:12 89-year-old male with prior history of HI not currently on any anticoagulants presents sp3 to the ED with a mechanical fall while working in his yard on some "tall grass" landing on his right shoulder with concerns about possible shoulder dislocation versus injury. He denies any other injuries including head, neck, chest, other extremity, abdomen, back and does not have any other symptoms. No medical prodromal event noted. Remainder of ROS negative.. Historical: - Allergies: 11:00 PENICILLINS; bp - PMHx: 11:00 Myocardial infarction; bp - Immunization history:: Adult Immunizations up to date. - Infectious Disease History:: Denies. - Social history:: Smoking status: Patient denies any tobacco usage or history of. ROS: 11:13 Constitutional: Negative for fever, chills, and weight loss, Eyes: Negative for injury, sp3 pain, redness, and discharge, Neck: Negative for injury, pain, and swelling, Cardiovascular: Negative for chest pain, palpitations, and edema, Respiratory: Negative for shortness of breath, cough, wheezing, and pleuritic chest pain, Abdomen/GI: Negative for abdominal pain, nausea, vomiting, diarrhea, and constipation, Back: Negative for injury and pain, Skin: Negative for injury, rash, and discoloration, Neuro: Negative for headache, weakness, numbness, tingling, and seizure, Psych: Negative for depression, anxiety, suicide ideation, homicidal ideation, and hallucinations, Allergy/Immunology: Negative for hives, rash, and allergies, Endocrine: Negative for neck swelling, polydipsia, polyuria, polyphagia, and marked weight changes, Hematologic/Lymphatic: Negative for swollen nodes, abnormal bleeding, and unusual bruising, 11:13 All other systems are negative, Exam: 11:13 Constitutional: This is a well developed, well nourished patient who is awake, alert, sp3 and in no acute distress. Head/Face: Normocephalic, atraumatic. Eyes: Pupils equal round and reactive to light, extra-ocular motions intact. Lids and lashes normal. Conjunctiva and sclera are non-icteric and not injected. Cornea within normal limits. Periorbital areas with no swelling, redness, or edema. Neck: Trachea midline, no thyromegaly or masses palpated, and no cervical lymphadenopathy. Supple, full range of motion without nuchal rigidity, or vertebral point tenderness. No Meningismus. Chest/axilla: Normal chest wall appearance and motion. Nontender with no deformity. No lesions are appreciated. Cardiovascular: Regular rate and rhythm with a normal S1 and S2. No gallops, murmurs, or rubs. Normal PMI, no JVD. No pulse deficits. Respiratory: Lungs have equal breath sounds bilaterally, clear to auscultation and percussion. No rales, rhonchi or wheezes noted. No increased work of breathing, no retractions or nasal flaring. Abdomen/GI: Soft, non-tender, with normal bowel sounds. No distension or tympany. No guarding or rebound. No evidence of tenderness throughout. Back: No spinal tenderness. No costovertebral tenderness. Full range of motion. Skin: Warm, dry with normal turgor. Normal color with no rashes, no lesions, and no evidence of cellulitis. Neuro: Awake and alert, GCS 15, oriented to person, place, time, and situation. Cranial nerves II-XII grossly intact. Motor strength 5/5 in all extremities. Sensory grossly intact. Cerebellar exam normal. Normal gait. Psych: Awake, alert, with orientation to person, place and time. Behavior, mood, and affect are within normal limits. 11:13 Musculoskeletal/extremity: Clinically no dislocation noted. Lateral and anterior shoulder pain on palpation is present. Distal neurovascular exam is normal.. Vital Signs: 11:00 BP 109 / 67; Pulse 65; Resp 16; Temp 98.9; Pulse Ox 98% ; bp 13:00 BP 111 / 71; Pulse 61; Resp 18; Pulse Ox 97% ; bp MDM: 11:00 Medical Screening Exam initiated sp3 11:15 Data reviewed: vital signs, nurses notes, radiologic studies. ED course: 89-year-old sp3 male with right shoulder injury. Differential diagnosis includes shoulder strain, shoulder sprain, shoulder fracture, dislocation, among others. I am not highly suspicious of fracture at this time. No medical prodrome. Will obtain x-rays and disposition pending workup and patient course.. 12:47 ED course: Patient has an AC joint separation mild in nature. Will place patient in sp3 sling and have him follow-up with orthopedics. No further intervention in the emergency department indicated at this time.. 03/26 11:03 Order name: Shoulder Right (2 View) XRAY; Complete Time: 12:46 sp3 03/26 11:03 Order name: CXR XRAY; Complete Time: 12:46 sp3 03/26 12:47 Order name: Sling; Complete Time: 13:00 sp3 Administered Medications: No medications were administered Disposition Summary: 03/26/25 12:48 Discharge Ordered Notes: Location: Home sp3 Condition: Stable sp3 Diagnosis - Right AC joint separation, mechanical fall, shoulder contusion sp3 Followup: sp3 - With: Dharmesh Teague MD - When: Upon discharge from the Emergency Department - Reason: Recheck today's complaints Discharge Instructions: - Discharge Summary Sheet sp3 - Acromioclavicular Separation sp3 - How to Use a Sling sp3 Forms: - Medication Reconciliation Form sp3 - Antibiotic Education sp3 - Prescription Opioid Use sp3 - Patient Portal Instructions sp3 - Leadership Thank You Letter sp3 Prescriptions: - Tramadol 50 mg Oral Tablet - take 1 tablet ORAL route every 8 hours as needed; 12 tablet; Refills: 0, sp3 Product Selection Permitted Signatures: Dispatcher [employer] EDJesus Tena, CHERELLE RN Roxanna Bright MD MD sp3 Corrections: (The following items were deleted from the chart) 11:20 11:20 Shoulder Right 2 View+RAD.RAD.BRZ ordered. EDMS EDMS 11:20 11:20 Chest Single View+RAD.RAD.BRZ ordered. EDMS EDMS
== END 2025-03-26 13:02 | disposition home or self-care (01) ==
LOC: ER 10:52
DX: S43.101A Unspecified dislocation of right acromioclavicular joint, initial encounter (principal); W18.30XA Fall on same level, unspecified, initial encounter
CPT/HCPCS: 71045; 99283